=== PATIENT | female | born 1940 | race Caucasian/White ===

== ENCOUNTER 2023-01-04 07:08 | Inpatient (IN) | payer OTHER ==
--- OUTSIDE RECORDS SUMMARY | 2023-01-04 07:12 | XMS REPORT | Continuity of Care Document ---
:1940 Author Organization [facility] t Address [address] [place] [address]. [address] [place] [address] Care Team Providers Name Role Phone Geri Staley Primary Care Physician Jesús Rosales MD Attending Clinician Aleyda Chung DO Attending Clinician Issa ROTHMAN, Himanshu Attending Clinician Catalina Malik RN Attending Clinician Unavailable Bobby ROTHMAN, Jesús Britt Attending Clinician Tiffany Bella MA Attending Clinician Unavailable Lucas Thayer RN Attending Clinician Unavailable Mervat Adams RN Attending Clinician Unavailable [facility] [place] Attending Clinician Unavailable Yinka Mendieta MD Attending Clinician Aline Negrete MA Attending Clinician Unavailable Norma Williamson RN Attending Clinician Unavailable Luisa Nova RN Attending Clinician Unavailable Moriah Vela RN Attending Clinician Unavailable Sophia Oconnell NP Attending Clinician Catherine ROTHMAN, Not In System Attending Clinician Unavailable Kendra Sinclair NP Attending Clinician Lupe Scruggs MA Attending Clinician Unavailable Marilu ROTHMAN, Junie Travis Attending Clinician [phone] Therapy, [facility] Infusion Attending Clinician Unavailable Emelina Gardner MD Attending Clinician EMELINA GARDNER Attending Clinician Unavailable Doctor Unassigned, [place] Attending Clinician Unavailable Payers Payer Name Policy Type Policy Number Effective Date Expiration Date S ourálvaro Problems Condition Condition Condition Status Onset Resolution Last Treating Co mments Source Name Details Category Date Date Treatment Clinician Date Malignant Malignant Disease Active Met [facility]odi neoplasm neoplasm 12-13 of of 00:00: Hospita upper-oute upper-oute 00 l r quadrant r quadrant of left of left breast in breast in female, female, estrogen estrogen receptor receptor negative negative Breast Breast Disease Active [facility] mass in mass in 11-21 st female female 00:00: Hospita 00 l Allergies, Adverse Reactions, Alerts This patient has no known allergies or adverse reactions. Social History Social Habit Start Date Stop Date Quantity Comments Source History of tobacco Current smoker [facility] Alcohol intake 2022-12-27 2022-12-27 [facility] 00:00:00 00:00:00 non-drinker Hospital (finding) Cigarettes smoked 2022-12-21 2022-12-[address] current (pack per 00:00:00 00:00:00 Hospita l day) - Reported Cigarette 2022-12-21 2022-12-21 [facility] pack-years 00:[facility]:00 00:00:00 Hospital Tobacco use and 2022-12-21 2022-12-21 Smokeless tobacco [facility] exposure 00:00:00 00:00:00 non-user Hospital History SDOH Food 2022-12-21 2022-12-[address] Worry 00:00:00 00:00:00 Hospital History SDOH Food 2022-12-21 2022-12-[address] Scarcity 00:00:00 00:00:00 Hospital History SDOH 2022-12-21 2022-12-21 2 [facility] Med 00:00:00 00:00:00 Hospital History SDOH 2022-12-21 2022-12-21 2 [facility] Non-Med 00:00:00 00:00:00 Hospita l Sex Assigned At [birth year] [facility] 00:00:00 [facility]:00 Hospital Smoking Status Start Date Stop Date Source Unknown if ever smoked [facility] Ex-smoker 2022-12-21 00:00:2022-12-21 00:00:00 [facility] Medications Ordered Filled Start Stop Current Ordering Indication Dosage Frequency Signature Comments Components Source Medication Medication Date Date Medication? Clinician (SIG) Name Name HYDROcodone 2022- Yes [id number] 1{tbl} Q8H Take 1 Methodi -acetaminop 4-16 -[address] [employer] ([employer] 00:00: 04:59 mouth Hosp valerie 7.5-325 mg 00 :00 every 8 l per tablet (eight) hours as needed for moderate pain for up to 10 days .acute pain. Max Daily Amount: 3 tablets HYDROcodone 2022- Yes [id number] 1{tbl} Q6H Take 1 Methodi -acetaminop 4-16 -[address] [employer] ([employer] 00:00: 04:59 mouth Hosp valerie 5-325 mg 00 :00 every 6 l per tablet (six) hours as needed for moderate pain for up to 7 days .acute pain. Max Daily Amount: 4 tablets HYDROcodone 2022-2022- [place] [id number] 1{tbl} Q8H Take 1 Methodi -acetaminop 4-16 -[address] [employer] ([employer] 00:00: 00:00 mouth Hosp valerie 5-325 mg 00 :00 every 8 l per tablet (eight) hours as needed for moderate pain for up to 10 days .acute pain. Max Daily Amount: 3 tablets glycopyrrol 0 Yes Inhale. Met hodi ate-formote 4-05 st roL 17:05: Hospita (Bevespi 49 l Aerosphere) 9-4.8 mcg HFA aerosol inhaler gabapentin 2022-0 Yes 800mg [id number] Take 1 [facility] (NEURONTIN) 4-[id number] 800 mg 17:05: 3D (800 mg Hospita tablet 49 total) by l mouth 3 (three) times a day. aspirin 2022-0 Yes 81mg QD Take 1 [facility] (ECOTRIN) 4-05 tablet (81 st 81 MG 17:05: mg total) Hospita enteric 49 by mouth l coated daily. tablet OLANZapine Yes [id number] Take one [facility] (ZyPREXA) 5 3-30 (1) tablet st MG tablet 00:00: by mouth Hosp valerie 00 nightly as l needed for nausea and vomiting. prochlorper 0 202- Yes [id number] 5mg Q6H Take 1 [facility] azine 3-30 04-30 tablet (5 st (COMPAZINE) 00:00: 04:59 mg total) Hospita 5 MG tablet 00 :00 by mouth l every 6 (six) hours as needed for nausea or vomiting for up to 30 days. metoprolol 0 Yes 25mg QD Take 1 Metho di succinate 8-14 tablet (25 st XL 00:00: mg total) Hospita (TOPROL-XL) 00 by mouth l 25 mg 24 hr daily. tablet sertraline 0 Yes 25mg QD Take 1 Metho di (ZOLOFT) 25 8-14 tablet (25 st MG tablet 00:00: mg total) Hos veronica 00 by mouth l daily. atorvastati 0 Yes 20mg QD Take 1 Meth seyd n (LIPITOR) 7-27 tablet (20 st 20 mg 00:00: mg total) Hospita tablet 00 by mouth l daily. traZODone 0 Yes 100mg QD Take 1 Metho di (DESYREL) 6-[address] 100 MG 00:00: (100 mg Hospita tablet 00 total) by l mouth nightly. Arnuity Yes INAHLE 1 Method i Ellipta 200 6-03 PUFF(S) BY st mcg/actuati 00:00: MOUTH Hospi ta on blister 00 EVERY 24 l with device HOURS ALPRAZolam Yes .5mg Take 1 Metho di (XANAX) 0.5 5-[address] MG tablet 00:00: (0.5 mg Hospi ta 00 total) by l mouth. sotrovimab 2021- No [id number] 500mg 500 mg, IV [facility] (XEVUDY) 2-10 02-10 Infusion, ity o f 500 mg in 23:30: 22:51 ONCE, [place] NaCl 0.9% 00 :00 Administer Medi christine (NS) 50 mL over 30 Branch MINI-BAG Minutes, On Candy 10/28/21 at 1730, For [address] able 24 hours refrigerat ed or 6 hours at room temperatur e including transporta tion and infusion time.
Immunizations Ordered Immunization Filled Immunization Date Status Commen ts Source Name Name Zoster Vaccine 2022-01-27 Completed [facility] Recombinant 00:00:00 [facility] PFIZER COVID-19 MRNA 2021-05-27 Completed [facility] VACCINATION 00:00:00 [facility] PFIZER COVID-19 MRNA 2021-05-04 Completed [facility] VACCINATION 00:00:00 Hospital Vital Signs Vital Name Observation Time Observation Value Comments Source Systolic blood 2021-10-28 23:52:00 162 mm[Hg] Univer sity [facility] Diastolic blood 2021-10-28 23:52:00 63 mm[Hg] Unive rsity [facility] Heart rate 2021-10-28 23:52:00 63 /min [facility] Body temperature 2021-10-28 23:52:00 36.44 María [facility] Res[facility] rate 2021-10-28 23:52:00 21 /min [facility] Oxygen saturation in 2021-10-28 23:52:00 92 /min [facility] Arterial blood by [facility] Pulse oximetry [place] Body height 2021-10-28 22:05:[address] [facility] Body weight 2021-10-28 22:05:[address] [facility] BMI 2021-10-28 22:05:00 27.46 kg/m2 [facility] Systolic blood 2022-12-28 15:15:00 179 mm[Hg] Method ist [facility] pressure Diastolic blood 2022-12-28 15:15:00 73 [facility]Hg[facility] pressure Heart rate 2022-12-28 15:15:00 51 /min [facility] Body temperature 2022-12-28 15:15:00 36 María [facility] Respiratory rate 2022-12-28 15:15:00 18 /min [facility] Body height 2022-12-28 15:15:00 162.6 cm measured [facility] Body weight 2022-12-28 15:15:00 74.027 kg [facility] BMI 2022-12-28 15:15:00 28.01 kg/m2 [facility] Oxygen saturation in 2022-12-28 15:15:00 95 /min [facility] Arterial blood by Pulse oximetry Procedures Procedure Date / Time Performing Clinician Source Performed COMPREHENSIVE METABOLIC 2022-12-28 15:25:00 Juliet, [facility] PANEL CBC WITH PLATELET AND 2022-12-28 15:25:00 Juliet, [facility] DIFFERENTIAL MAGNESIUM LEVEL 2022-12-28 15:25:00 Juliet, [facility] spital ESTIMATED GFR 2022-12-28 15:25:00 Juliet, [facility] spital MANUAL DIFFERENTIAL 2022-12-28 15:25:00 Juliet, [facility] IR PORT PLACEMENT 2022-12-27 17:08:00 Juliet, [facility] CBC WITH PLATELET AND 2022-12-13 20:43:00 Juliet, [facility] DIFFERENTIAL COMPREHENSIVE METABOLIC 2022-12-13 20:43:00 Juliet, [facility] PANEL PARTIAL THROMBOPLASTIN 2022-12-13 20:43:00 Juliet, [facility] TIME (PTT) PROTHROMBIN TIME WITH INR 2022-12-13 20:43:00 Juliet, [facility] ESTIMATED GFR 2022-12-13 20:43:00 Juliet, [facility] sp[facility] SURGICAL PATHOLOGY 2022-11-23 17:27:00 [facility] REQUEST US BREAST BIOPSY RIGHT 2022-11-23 16:57:24 [facility] MAMMO DIAGNOSTIC POST 2022-11-23 16:57:05 [facility] CLIP BILATERAL SURGICAL PATHOLOGY 2022-11-23 16:27:00 [facility] REQUEST US BREAST BIOPSY LEFT 2022-11-23 16:15:49 [facility] US BREAST COMPLETE 2022-11-08 17:48:58 [facility] BILATERAL MAMMO BREAST DIAGNOSTIC 2022-11-08 17:23:07 Yinka Mendieta [facility] TOMOSYNTHESIS BILATERAL CT CHEST EXTERNAL STUDY 2022-10-25 21:02:16 Jesús Rosales [facility] CT CHEST WO CONTRAST 2022-10-25 00:00:00 Provider, Not In [facility] CT CHEST EXTERNAL STUDY 2022-10-25 00:00:00 Provider, Not In [facility] CT CHEST EXTERNAL STUDY 2022-08-05 18:37:[address] [facility] CT CHEST EXTERNAL STUDY 2022-08-05 00:00:00 Provider, Not In [facility] CT CHEST EXTERNAL STUDY 2022-04-15 18:45:06 [address] [facility] CT CHEST EXTERNAL STUDY 2022-04-15 18:45:[address] [facility] CT CHEST WO CONTRAST 2022-04-15 00:00:00 Provider, Not In [facility] MRI THORACIC SPINE WO 2022-03-31 00:00:00 Provider, Not In [facility] CONTRAST System XR LUMBAR SPINE AP 2022-03-22 17:55:55 [facility] LATERAL FLEXION AND [facility] EXTENSION XR CERVICAL SPINE NEUTRAL 2022-03-22 17:55:00 [facility] [place] FLEXION AND EXTENSION Thaddeus MRI SPINE EXTERNAL STUDY 2022-02-09 00:00:00 Provider, Not In [facility] CONSENT/REFUSAL FOR 2021-10-28 06:01:00 Doctor Unassigned, [facility] DIAGNOSIS AND TREATMENT [place] [facility] Plan of Care Planned Activity Planned Date Details Comments Source Future Scheduled 2023-01-04 65+ PNEUMOCOCCAL [facility] Test 07:11:28 VACCINE (1 - PCV) [code = 65+ PNEUMOCOCCAL VACCINE (1 - PCV)] Future Scheduled 2023-01-04 COVID-19 VACCINE (3 - [facility] Test 07:11:28 Booster for Pfizer series) [code = COVID-19 VACCINE (3 - Booster for Pfizer series)] Future Scheduled 2023-01-04 INFLUENZA VACCINE [facility] Test 07:11:28 [code = INFLUENZA VACCINE] Encounters Start End Encounter Admission Attending Care Care Encounter Source Date/Time Date/Time Type Type Clinicians Facility Department ID 2023-01-02 2023-01-02 Hospital Bobby, 1.2.840.1 [id number] Methodi 14:55:18 23:59:00 Encounter Jesús Melvin 87679.1.[address] 3.430.2.7 Hospit a .3.511812 l .8 2023-01-02 2023-01-02 Outpatient [facility] [id number] [place] 00:00:00 00:00:[address] 2023-01-02 2023-01-02 Orders Bobby 1.2.840.1 [id number] [facility] 00:00:00 00:00:00 Only Jesús Melvin 03862.1.[address] 3.430.2.7 Hospit a .3.970133 l .8 2023-01-01 2023-01-01 Orders Aleyda Chung 1.2.840.1 [id number] 2099 [id number] Methodi 00:00:00 00:00:[address] 3.430.2.7 Hospit a .3.969987 l .8 2023-01-01 2023-01-01 Orders Aleyda Chung 1.2.840.1 [id number] 2099 [id number] Methodi 00:00:00 00:00:[address] 3.430.2.7 Hospit a .3.494667 l .8 2023-01-01 2023-01-01 Orders Himanshu Parsons 1.2.840.1 [id number] 760 [id number] Methodi 00:00:00 00:00:[address] 3.430.2.7 Hospit a .3.260379 l .8 2022-12-28 2022-12-28 Infusion Aleyda Chung 1.2.840.1 [id number] 634 [id number] Methodi 10:00:00 16:00:[address] 3.430.2.7 Hospit a .3.534986 l .8 2022-12-28 2022-12-28 Outpatient ALEYDA CHUNG [facility] [id number] [place] 00:00:00 00:00:[address] 2022-12-28 2022-12-28 Oncology Bartos, 1.2.840.1 [id number] Methodi 00:00:00 00:00:00 [facility] Catalina 20585.1.1 030 s t ip 3.430.2.7 Hospit a .3.779485 l .8 2022-12-27 2022-12-27 [facility] Yobany Chungh 1.2.840.1 [id number] Methodi 09:31:20 23:59:[address] 3.430.2.7 Hospit a .3.237245 l .8 2022-12-27 2022-12-27 [facility] [id number] [place] 00:00:00 00:00:[address] 2022-12-27 2022-12-27 Travel 1.2.840.1 1.2.220.218 9930 [id number] Methodi 00:00:00 00:00:[address] 3.430.2.7 0.2.7.3.698 Ho spita .3.726097 084.8 l .8 2022-12-22 2022-12-22 Telemedici Bobby 1.2.840.1 [id number] Methodi 13:45:00 14:00:00 ne Jesús Britt 74297.1.[address] 3.430.2.7 Hospit a .3.202934 l .8 2022-12-22 2022-12-22 Outpatient [facility] [id number] [place] 00:00:00 00:00:[address] 2022-12-22 2022-12-22 Telephone Shayne, 1.2.840.1 [id number] 033 [id number] Methodi 00:00:00 00:00:[address] 3.430.2.7 Hospit a .3.167859 l .8 2022-12-21 2022-12-21 Abstract Shayne, 1.2.840.1 [id number] 2100 006241 Methodi 00:00:00 00:00:[address] 3.430.2.7 Hospit a .3.714951 l .8 2022-12-21 2022-12-21 Oncology King, 1.2.840.1 [id number] 21001 [id number] Methodi 00:00:00 00:00:00 Survivorsh Catalina 98418.1.1 145 s t ip 3.430.2.7 Hospit a .3.129925 l .8 2022-12-20 2022-12-20 Orders Juliet Aleyda 1.2.840.1 [id number] 2099 [id number] Methodi 00:00:00 00:00:[address] 3.430.2.7 Hospit a .3.770082 l .8 2022-12-15 2022-12-15 Orders JulietYobanyh 1.2.840.1 [id number] 2099 084508 Methodi 00:00:00 00:00:[address] 3.430.2.7 Hospit a .3.865955 l .8 2022-12-15 2022-12-15 Orders Jeovany, 1.2.840.1 [id number] 7671 Methodi 00:00:00 00:00:00 Only Forresta L 26576.1.1 565 s t 3.430.2.7 Hospit a .3.424642 l .8 2022-12-14 2022-12-14 Telephone Bryan, 1.2.840.1 [id number] Methodi 00:00:00 00:00:[address] 3.430.2.7 Hospit a .3.947034 l .8 2022-12-14 2022-12-14 Orders Henna, 1.2.840.1 [id number] 2610 Methodi 00:00:00 00:00:00 Only Jacquiur 77786.1.1 179 s t 3.430.2.7 Hospit a .3.412592 l .8 2022-12-13 2022-12-13 Office Aleyda Chung 1.2.840.1 [id number] 2100 [id number] Methodi 14:00:00 16:30:[address] 3.430.2.7 Hospit a .3.477528 l .8 2022-12-13 2022-12-13 Lab Aleyda Chung 1.2.840.1 [id number] 2099 [id number] Methodi 15:30:00 15:35:[address] 3.430.2.7 Hospit a .3.266967 l .8 2022-12-13 2022-12-13 Office Anam 1.2.840.3 [id number] Methodi 12:45:00 14:48:53 Visit Yinka A 77246.1.1 731 s t 3.430.2.7 Hospit a .3.815797 l .8 2022-12-13 2022-12-13 Outpatient ANAM [facility] [id number] [place] 00:00:00 00:00:00 YINKA [address] 2022-12-13 2022-12-13 [facility] [id number] [place] 00:00:00 00:00:[address] 2022-12-13 2022-12-13 [facility] [id number] [place] 00:00:00 00:00:[address] 2022-12-13 2022-12-13 Orders Jeovany, 1.2.840.1 [id number] Methodi 00:00:00 00:00:00 Only Forresta L 79574.1.1 581 s t 3.430.2.7 Hospit a .3.905719 l .8 2022-12-13 2022-12-13 Travel 1.2.840.1 1.2.323.243 4837 [id number] Methodi 00:00:00 00:00:[address] 3.430.2.7 0.2.7.3.698 Ho spita .3.669510 084.8 l .8 2022-12-05 2022-12-05 Travel 1.2.840.1 1.2.152.541 2248 [id number] Methodi 00:00:00 00:00:[address] 3.430.2.7 0.2.7.3.698 Ho spita .3.404231 084.8 l .8 2022-12-02 2022-12-02 Telephone Anam, 1.2.840.7 [id number] 2 [id number] Methodi 00:00:00 00:00:00 Yinka A 35232.1.1 949 s t 3.430.2.7 Hospit a .3.275279 l .8 2022-11-29 2022-11-29 Telephone Glazer, 1.2.840.4 [id number] 422 [id number] Methodi 00:00:00 00:00:00 Aline White [address]119.1.[address] 3.430.2.7 Hospit a .3.611650 l .8 2022-11-25 2022-11-25 Telephone Rosales, 1.2.840.6 [id number] 192 [id number] Methodi 00:00:00 00:00:00 Sreekanthli [address]Stepan [address] 3.430.2.7 Hospit a .3.381603 l .8 2022-11-25 2022-11-25 Oncology Clay, 1.2.840.1 [id number] 862 [id number] Methodi 00:00:00 00:00:00 [facility] Norma 24860.1.1 113 s t ip 3.430.2.7 Hospit a .3.584424 l .8 2022-11-24 2022-11-24 Telephone Avtar, 1.2.840.1 [id number] 683 [id number] Methodi 00:00:00 00:00:[address] 3.430.2.7 Hospit a .3.151170 l .8 2022-11-23 2022-11-23 [facility], 1.2.840.1 [id number] Methodi 09:19:13 23:59:00 Encounter Yinka Pugh 48159.1.[address] 3.430.2.7 Hospit a .3.553112 l .8 2022-11-23 2022-11-23 [facility], 1.2.840.1 [id number] 774 [id number] Methodi 09:18:27 09:18:27 Encounter Yinka Pugh 70839.1.[address] 3.430.2.7 Hospit a .3.364001 l .8 2022-11-23 2022-11-23 [facility], 1.2.840.1 [id number] Methodi 09:17:14 09:17:14 Encounter Yinka Pugh 09531.1.[address] 3.430.2.7 Hospit a .3.655140 .8 2022-11-23 2022-11-[address] [facility] [id number] [place] 00:00:00 00:00:00 YINKA [address] 2022-11-23 2022-11-23 Outpatient [facility] [id number] [place] 00:00:00 00:00:00 YINKA [address] 2022-11-23 2022-11-23 [facility] [id number] [place] 00:00:00 00:00:00 YINKA [address] 2022-11-22 2022-11-22 Telephone Avtar, 1.2.840.1 [id number] Methodi 00:00:00 00:00:[address] 3.430.2.7 Hospit a .3.101603 l .8 2022-11-22 2022-11-22 Travel 1.2.840.1 1.2.457.147 8619 [id number] Methodi 00:00:00 00:00:[address] 3.430.2.7 0.2.7.3.698 Ho spita .3.770087 084.8 l .8 2022-11-14 2022-11-14 Telephone Glabecky, 1.2.840.2 [id number] 039 [id number] Methodi 00:00:00 00:00:00 Aline White 89875.1.[address] 3.430.2.7 Hospit a .3.869008 l .8 2022-11-14 2022-11-14 Travel 1.2.840.1 1.2.825.057 5982 [id number] Methodi 00:00:00 00:00:[address] 3.430.2.7 0.2.7.3.698 Ho spita .3.409072 084.8 l .8 2022-11-10 2022-11-10 Telephone Vela, 1.2.840.1 [id number] 2099 [id number] Methodi 00:00:00 00:00:00 [address] 3.430.2.7 Hospit a .3.485962 l .8 2022-11-09 2022-11-09 Transcribe Anam, 1.2.840.1 [id number] 2 [id number] Methodi 00:00:00 00:00:00 Orders Yinka A 02403.1.1 576 s t 3.430.2.7 Hospit a .3.959848 l .8 2022-11-09 2022-11-09 Orders Sophia Oconnell 1.2.840.2 [id number] 2 [id number] Methodi 00:00:00 00:00:[address] 3.430.2.7 Hospit a .3.424304 l .8 2022-11-08 2022-11-08 [facility], 1.2.840.1 [id number] Methodi 10:12:34 23:59:00 Encounter Yinka Pugh 20251.1.[address] 3.430.2.7 Hospit a .3.138036 l .8 2022-11-08 2022-11-08 Office Jesús Rosales 1.2.840.6 [id number] Methodi 09:30:00 11:29:12 Visit Yinka Mendieta 88728.1.[address] 3.430.2.7 Hospit a .3.712730 l .8 2022-11-08 2022-11-08 [facility], 1.2.840.1 [id number] Methodi 10:09:38 10:11:00 Encounter Yinka Pugh 67083.1.[address] 3.430.2.7 Hospit a .3.212817 l .8 2022-11-08 2022-11-08 Travel 1.2.840.1 1.2.577.317 2993 [id number] Methodi 00:00:00 00:00:[address] 3.430.2.7 0.2.7.3.698 Ho spita .3.856974 084.8 l .8 2022-11-08 2022-11-08 Outpatient [facility] [id number] [place] 00:00:00 00:00:00 JESÚS Wahl Method i st 2022-11-08 2022-11-08 Outpatient [facility] [id number] [place] 00:00:00 00:00:00 YINKA [address] 2022-11-08 2022-11-08 Outpatient [facility] [id number] [place] 00:00:00 00:00:[address] YINKA [address] 2022-10-28 2022-10-28 Telephone Shayne 1.2.840.1 [id number] Methodi 00:00:00 00:00:[address] 3.430.2.7 Hospit a .3.946957 l .8 2022-10-28 2022-10-28 Telephone Rosales, 1.2.840.5 [id number] 703 [id number] Methodi 00:00:00 00:00:00 Edli Y.H. 18732.1.[address] 3.430.2.7 Hospit a .3.554139 l .8 2022-10-27 2022-10-27 Orders Provider, 1.2.840.1 [id number] 2099 [id number] Methodi 00:00:00 00:00:00 Only Not In 57469.1.[address] System 3.430.2.7 Hospit a .3.472028 l .8 2022-10-25 2022-10-25 Orders Provider, 1.2.840.1 [id number] 2099 [id number] Methodi 00:00:00 00:00:00 Only Not In 87249.1.[address] System 3.430.2.7 Hospit a .3.057019 l .8 2022-10-07 2022-10-07 Telephone Shayne, 1.2.840.1 [id number] 417 [id number] Methodi 00:00:00 00:00:[address] 3.430.2.7 Hospit a .3.635122 l .8 2022-10-07 2022-10-07 Telephone Shayne, 1.2.840.1 [id number] 399 [id number] Methodi 00:00:00 00:00:[address] 3.430.2.7 Hospit a .3.138364 l .8 2022-10-07 2022-10-07 Telephone Rosales, 1.2.840.1 [id number] 490 [id number] Methodi 00:00:00 00:00:00 [facility]. [address]72.1.[address] 3.430.2.7 Hospit a .3.474798 l .8 2022-09-07 2022-09-07 Telephone Bella, 1.2.840.1 [id number] 611 [id number] Methodi 00:00:00 00:00:[address] 3.430.2.7 Hospit a .3.932072 l .8 2022-09-07 2022-09-07 Telephone Bella, 1.2.840.1 [id number] 623 [id number] Methodi 00:00:00 00:00:[address] 3.430.2.7 Hospit a .3.451224 l .8 2022-09-02 2022-09-02 Telephone Bella, 1.2.840.1 [id number] 491 [id number] Methodi 00:00:00 00:00:[address] 3.430.2.7 Hospit a .3.930276 l .8 2022-09-01 2022-09-[address] [facility], 1.2.840.1 [id number] 10868 Methodi 09:38:01 23:59:00 Encounter Jesús Britt 96370.1.[address] 3.430.2.7 Hospit a .3.719937 l .8 2022-09-01 2022-09-01 [facility], 1.2.840.1 [id number] 0003 Methodi 09:30:00 10:31:24 Visit Jesús Britt 94945.1.[address] 3.430.2.7 Hospit a .3.260866 l .8 2022-09-01 2022-09-[address] [facility], 1.2.840.1 [id number] 61330 13064 Methodi 09:29:36 09:37:00 Encounter Jesús Britt 19869.1.[address] 3.430.2.7 Hospit a .3.670617 l .8 2022-09-01 2022-09-01 [facility], 1.2.840.1 [id number] 2100 [id number] Methodi 00:00:00 00:00:[address] [place] 3.430.2.7 Hospit a .3.795109 l .8 2022-09-01 2022-09-01 Orders Provider, 1.2.840.1 [id number] 2099 701047 Methodi 00:00:00 00:00:00 Only Not In 57541.1.[address] System 3.430.2.7 Hospit a .3.657897 l .8 2022-09-01 2022-09-01 Outpatient [facility] [id number] [place] 00:00:00 00:00:00 EDWARD [address] 2022-09-01 2022-09-01 Outpatient [facility] [id number] [address] [place] 00:00:00 00:00:00 EDWARD [address] 2022-09-01 2022-09-01 Outpatient [facility] [id number] [place] 00:00:00 00:00:00 EDWARD [address] 2022-08-31 2022-08-31 Telephone Shayne, 1.2.840.1 [id number] 514 [id number] Methodi 00:00:00 00:00:00 Tiffany [address].1.[address] 3.430.2.7 Hospit a .3.436125 l .8 2022-08-30 2022-08-30 Abstract Shayne, 1.2.840.1 [id number] Methodi 00:00:00 00:00:[address] 3.430.2.7 Hospit a .3.649074 l .8 2022-05-12 2022-07-19 Office Rosales, 1.2.840.1 [id number] Methodi 14:30:00 00:05:51 Visit Jesús Britt 72311.1.[address] 3.430.2.7 Hospit a .3.611845 l .8 2022-07-19 2022-07-19 Orders Sheba, 1.2.840.1 [id number] Methodi 00:00:00 00:00:00 Only Lupe 76843.1.[address] 3.430.2.7 Hospit a .3.389147 l .8 2022-05-12 2022-05-12 Hospital [facility], 1.2.840.1 [id number] Methodi 14:35:21 23:59:00 Encounter Jesús ConstantinoStepan 53226.1.[address] 3.430.2.7 Hospit a .3.044497 l .8 2022-05-12 2022-05-12 Orders Provider, 1.2.840.1 [id number] 2100 [id number] Methodi 00:00:00 00:00:00 Only Not In 99498.1.[address] System 3.430.2.7 Hospit a .3.046486 l .8 2022-05-12 2022-05-12 Travel 1.2.840.1 1.2.719.075 3253 [id number] Methodi 00:00:00 00:00:[address] 3.430.2.7 0.2.7.3.698 spita .3.803895 084.8 l .8 2022-05-12 2022-05-12 Outpatient [facility] [id number] [place] 00:00:00 00:00:00 EDWARD [address] 2022-05-12 2022-05-12 Outpatient [facility] [id number] [place] 00:00:00 00:00:00 EDWARD [address] 2022-05-10 2022-05-10 Abstract Sheba, 1.2.840.1 [id number] 2100 [id number] Methodi 00:00:00 00:00:[address] 3.430.2.7 Hospit a .3.152841 l .8 2022-05-10 2022-05-10 Orders Provider, 1.2.840.1 [id number] Methodi 00:00:00 00:00:00 Only Not In 66858.1.[address] System 3.430.2.7 Hospit a .3.900956 l .8 2022-05-05 2022-05-05 [facility], 1.2.840.6 [id number] 032 [id number] Methodi 00:00:00 00:00:00 Jesús Britt 40946.1.[address] 3.430.2.7 Hospit a .3.105391 l .8 2022-03-22 2022-03-22 [facility], 1.2.840.1 [id number] Methodi 12:32:47 23:59:00 Encounter Junie 01200.1.1 072 s t Thaddeus 3.430.2.7 Hospi ta .3.000670 l .8 2022-03-22 2022-03-22 [facility], 1.2.840.1 [id number] Methodi 12:32:24 23:59:00 Encounter Junie 49216.1.1 037 s t Thaddeus 3.430.2.7 Hospi ta .3.496089 l .8 2022-03-22 2022-03-22 Travel 1.2.840.1 1.2.912.118 7460 [id number] Methodi 00:00:00 00:00:[address] 3.430.2.7 0.2.7.3.698 Ho spita .3.775627 084.8 l .8 2022-03-22 2022-03-22 [facility], 1.2.840.1 [id number] [id number] Methodi 00:00:00 00:00:00 Orders Junie 63505.1.[address] Thaddeus 3.430.2.7 Hospi ta .3.138118 l .8 2022-03-22 2022-03-22 Outpatient [facility] [id number] [address] [place] [address] 00:00:00 00:00:[address] 2022-03-22 2022-03-22 Outpatient [facility] [id number] [address] [place] [address] 00:00:00 00:00:[address] 2021-10-28 2021-10-28 Nurse Therapy, Adc Covid Infusion [facility] 1.2.840.114 [id number] Univers 16:00:00 17:00:00 Visit Emelina Gardner 350.1.13.10 ity [place] [id number] [place] [id number] Branch 2021-10-28 2021-10-28 Outpatient R RUFUS [facility] [id number] Univers 16:00:00 16:00:00 EMELINA erazo [facility] 2021-10-28 2021-10-28 Orders Doctor ENEDELIA 1.2.840.114 [id number] Univers 00:00:00 00:00:00 Only Unassigned, MARIAH 350.1.13.10 ity of [place] [facility] 4.2.7.2.686 Ryan as [id number] [place] [address] Branch Results Test Description Test Time Test Comments Results Result Comments Source Surgical pathology request 2022-11-25 17:27:16 Test Item Value Reference Range Interpretation Comme nts Case number (test code = [id number]) [id number] Surgical pathology report (test code = See link below for PDF Lab R eport 1833) Result status (test code = [id number]) This is Final Report for [id number] 0133-1 [facility]
[2023-01-04] MEDS ORDERED: FENTANYL CITR 100 MCG/2 ML ONE (07:56)
[2023-01-04] MEDS ORDERED: FAMOTIDINE 20 MG/2 ML VIAL IV ONE ×2 (07:56→20:26)
[2023-01-04] MEDS ORDERED: ONDANSETRON 4 MG/2 ML VIAL ONE (07:56)
[2023-01-04] MEDS ORDERED: NA CHLORIDE 0.9% 1,000 ML ONE ×2 (07:56→17:04)
[2023-01-04] MEDS ORDERED: NA CHLORIDE 0.9% 500 ML ONE (07:56)
[2023-01-04 08:28] LABS: Absolute Lymphocytes (CBC) 0.5 K/uL (0.7-4.9); Hematocrit 40.4 % (36.0-45.0); Lymphocytes % 14.1 % (15.3-44.8); MCV 89.2 fL (80-100); MPV 9.3 fL (7.6-11.3); RBC Red Blood Cell Count 4.53 M/uL (3.86-4.86)
[2023-01-04 08:37] LABS: Protime INR 1.13
--- NOTE | 2023-01-04 08:41 | RAD REPORT ---
EXAM DESCRIPTION: RAD - Chest Single View - 01/04/2023 8:28 am CLINICAL HISTORY: COUGH Chest pain. COMPARISON: No comparisons FINDINGS: Portable technique limits examination quality. Diffuse emphysema is seen. Scarring and postsurgical changes are present right upper lobe medially. T he lungs are otherwise clear. The heart is normal in size. No displaced fractures.Right port catheter its tip in the SVC. IMPRESSION: COPD without acute infiltrate.
[2023-01-04 08:55] LABS: Albumin 3.1 g/dL (3.4-5.0); Bilirubin Total 1.5 mg/dL (0.2-1.0); Potassium 3.6 mEq/L (3.5-5.1); Protein, Total 6.7 g/dL (6.4-8.2); Troponin High Sensitivity 54.1 pg/mL (<58.9)
[2023-01-04 08:59] LABS: Thyroid Stimulating Hormone 4.12 uIU/mL (0.358-3.740)
--- NOTE | 2023-01-04 09:51 | EDPHYS ---
Physician Documentation [facility] Name: Karrie Sky Age: 82 yrs Sex: Female : 1940 Arrival Date: 01/04/2023 Time: 07:08 Bed 17 Private MD: ED Physician Mikhail Astudillo HPI: 01/04 09:05 This 82 yrs old Female presents to ER via EMS with complaints of jannette Nausea/Vomiting/Diarrhea. 09:05 The patient presents to the emergency department with nausea, vomiting, that is jannette intermittent, diarrhea, that is continuous. Onset: The symptoms/episode began/occurred 2 day(s) ago. Possible causes: unknown. The symptoms are aggravated by nothing. The symptoms are alleviated by nothing. Associated signs and symptoms: Pertinent positives: diarrhea, nausea, vomiting. Severity of symptoms: At their worst the symptoms were mild in the emergency department the symptoms are unchanged. The patient has experienced similar episodes in the past, a few times. Historical: - Allergies: 07:09 No Known Allergies; as6 - PMHx: 07:09 breast cancer; as6 - PSHx: 07:09 Total abdominal hysterectomy; colon resection; as6 - Immunization history:: Client reports receiving the 2nd dose of the Covid vaccine, Pneumococcal vaccine is up to date. - Social history:: Smoking status: Patient denies any tobacco usage or history of. ROS: 09:07 Constitutional: Negative for fever, chills, and weight loss, Eyes: Negative for injury, jannette pain, redness, and discharge, ENT: Negative for injury, pain, and discharge, Neck: Negative for injury, pain, and swelling, Respiratory: Negative for shortness of breath, cough, wheezing, and pleuritic chest pain, Back: Negative for injury and pain, : Negative for injury, bleeding, discharge, and swelling, MS/Extremity: Negative for injury and deformity, Skin: Negative for injury, rash, and discoloration, Neuro: Negative for headache, weakness, numbness, tingling, and seizure, Psych: Negative for depression, anxiety, suicide ideation, homicidal ideation, and hallucinations, Allergy/Immunology: Negative for hives, rash, and allergies, Endocrine: Negative for neck swelling, polydipsia, polyuria, polyphagia, and marked weight changes. 09:07 Cardiovascular: Positive for palpitations. 09:07 Abdomen/GI: Positive for nausea and vomiting, diarrhea. Exam: 09:07 Head/Face: Normocephalic, atraumatic. Eyes: Pupils equal round and reactive to light, jannette extra-ocular motions intact. Lids and lashes normal. Conjunctiva and sclera are non-icteric and not injected. Cornea within normal limits. Periorbital areas with no swelling, redness, or edema. ENT: Nares patent. No nasal discharge, no septal abnormalities noted. Tympanic membranes are normal and external auditory canals are clear. Oropharynx with no redness, swelling, or masses, exudates, or evidence of obstruction, uvula midline. Mucous membranes moist. Neck: Trachea midline, no thyromegaly or masses palpated, and no cervical lymphadenopathy. Supple, full range of motion without nuchal rigidity, or vertebral point tenderness. No Meningismus. Chest/axilla: Normal chest wall appearance and motion. Nontender with no deformity. No lesions are appreciated. 09:07 Constitutional: The patient appears frail, uncomfortable. 09:07 Cardiovascular: Rate: tachycardic, actual rate is 103 bpm, Rhythm: regular, Heart sounds: normal, Edema: is not appreciated, JVD: is not appreciated. 09:07 ECG was reviewed by the Attending Physician. Vital Signs: 07:00 BP 160 / 68; Pulse 105; Resp 18; Pulse Ox 92% on 2 lpm NC; db 07:11 BP 142 / 69; Pulse 103; Resp 18 S; Temp 98.4(O); Pulse Ox 96% on 2 lpm NC; Weight 73.94 as6 kg (R); Height 5 ft. 4 in. (R); Pain 8/10; 08:00 BP 148 / 66; Pulse 108; Resp 16; Pulse Ox 94% on 2 lpm NC; db 09:00 BP 137 / 58; Pulse 106; Resp 16; Pulse Ox 93% on 2 lpm NC; db 10:47 BP 170 / 73; Pulse 100; Resp 22; Pulse Ox 94% on 2 lpm NC; db 11:30 BP 139 / 67; Pulse 100; Resp 18; Pulse Ox 100% on 2 lpm NC; db 13:00 BP 116 / 59; Pulse 96; Resp 14; Pulse Ox 100% on 2 lpm NC; db 19:25 BP 145 / 68; Pulse 108; Resp 17; Pulse Ox 99% ; ha1 07:11 Body Mass Index 27.98 (73.94 kg, 162.56 cm) as6 07:11 Pain Scale: Adult as6 11:30 sleeping db MDM: 07:10 Patient medically screened. [facility] 09:10 Differential diagnosis: Nonspecific abd pain, viral gastroenteritis, gastroenteritis. jannette Differential Diagnosis altered mental status. Data reviewed: vital signs, nurses notes, lab test result(s), EKG, radiologic studies, plain films. Consideration of Admission/Observation Patient was admitted/placed on observation. Escalation of care including admission/observation considered. I considered the following discharge prescriptions or medication management in the emergency department Medications were administered in the Emergency Department. See MAR. Test considered but Not performed: CT: no ct abd pelvis. Care significantly affected by the following chronic conditions: Cancer. Counseling: I had a detailed discussion with the patient and/or guardian regarding: the historical points, exam findings, and any diagnostic results supporting the discharge/admit diagnosis, the presence of at least one elevated blood pressure reading (>120/80) during this emergency department visit, lab results. 01/04 07:31 Order name: Basic Metabolic Panel; Complete Time: 10:59 jannette 01/04 07:31 Order name: CBC with Diff; Complete Time: 10:59 jannette 01/04 07:31 Order name: LFT's; Complete Time: 10:59 jannette 01/04 07:31 Order name: Magnesium; Complete Time: 10:59 jannette 01/04 07:31 Order name: NT PRO-BNP; Complete Time: 10:59 jannette 01/04 07:31 Order name: PT-INR; Complete Time: 08:48 01/04 07:31 Order name: Troponin HS; Complete Time: 10:59 jannette 01/04 07:31 Order name: Blood Culture Adult (2) 01/04 07:31 Order name: Lactate w/ 2H reflex if indic.; Complete Time: 08:48 jannette 01/04 07:31 Order name: Lipase; Complete Time: 10:59 jannette 01/04 07:31 Order name: Urinalysis w/ reflexes jannette 01/04 07:31 Order name: TSH; Complete Time: 10:59 jannette 01/04 09:02 Order name: T4 Free; Complete Time: 10:59 EDMS 01/04 09:27 Order name: Manual Differential; Complete Time: 10:59 EDMS 01/04 07:31 Order name: XRAY Chest (1 view); Complete Time: 08:48 [facility] 01/04 07:31 Order name: EKG; Complete Time: 07:32 [facility] 01/04 07:31 Order name: Cardiac monitoring; Complete Time: 08:17 [facility] 01/04 07:31 Order name: EKG - Nurse/Tech; Complete Time: 08:29 [facility] 01/04 07:31 Order name: IV Saline Lock; Complete Time: 08:17 [facility] 01/04 07:31 Order name: Labs collected and sent; Complete Time: 08:17 [facility] 01/04 07:31 Order name: O2 Per Protocol; Complete Time: 08:17 [facility] 01/04 07:31 Order name: O2 Sat Monitoring; Complete Time: 08:17 [facility] EC:07 Rate is 108 beats/min. Rhythm is regular. QRS [place] is Normal. OR interval is normal. [facility] QRS interval is normal. QT interval is normal. No Q waves. T waves are Normal. No ST changes noted. Clinical impression: Sinus tachycardia and No evidence of ischemia. Interpreted by me. Reviewed by me. Administered Medications: 07:55 Drug: NS 0.9% IV 500 ml Route: IV; Rate: bolus; Site: left wrist; db 13:05 Follow up: Response: No adverse reaction; IV Status: Completed infusion; IV Intake: db 500ml 07:55 Drug: fentaNYL (PF) IVP 25 mcg Route: IVP; Site: left forearm; db 13:05 Follow up: Response: No adverse reaction db 07:55 Drug: Ondansetron IVP 4 mg Route: IVP; Site: left forearm; db 13:05 Follow up: Response: No adverse reaction db 07:55 Drug: Famotidine IVP 20 mg Route: IVP; Site: left antecubital; db 13:05 Follow up: Response: No adverse reaction db 08:05 Drug: fentaNYL (PF) IVP 25 mcg Route: IVP; Site: right forearm; db 13:06 Follow up: Response: No adverse reaction db 08:49 Drug: NS 0.9% IV 1000 ml Route: IV; Rate: 125 ml/hr; Site: right forearm; db 13:06 Follow up: Response: No adverse reaction; IV Status: Infusion continued upon admission db 08:59 Drug: fentaNYL (PF) IVP 25 mcg Route: IVP; Site: right forearm; db 13:05 Follow up: Response: No adverse reaction db 11:10 Drug: Promethazine IVP 6.25 mg Route: IVP; Site: right antecubital; db 13:06 Follow up: Response: No adverse reaction db 11:10 Drug: morphine IVP or IV 2 mg Route: IVP; Infused Over: 4 mins; Site: right antecubital;db 13:06 Follow up: Response: No adverse reaction db 16:49 Drug: morphine IVP or IV 2 mg Route: IVP; Infused Over: 4 mins; Site: right antecubital;db 19:19 Follow up: Response: No adverse reaction db Disposition Summary: 01/04/23 09:50 Hospitalization Ordered Hospitalization Status: Observation jannette Provider: Joe Campos cha Condition: Fair jannette Problem: new jannette Symptoms: have improved jannette Bed/Room Type: Standard jannette Location: Telemetry/MedSurg (observation)(01/04/23 20:57) ds4 Room Assignment: 405(01/04/23 20:57) ds4 Diagnosis - Vomiting jannette - Diarrhea, unspecified jannette - Dehydration jannette - Hypokalemia jannette Forms: - Medication Reconciliation Form jannette - SBAR form jannette Signatures: Dispatcher [employer] EDMikhail Murray MD MD cha Swanson, Donovan ds4 Albina Webster, KARLA RN cg Tariq Juarez RN RN as6 Brenda Gregory RN RN db Corrections: (The following items were deleted from the chart) 20:50 09:50 Telemetry/MedSurg (observation) jannette cg 20:50 09:50 jannette cg 20:57 20:50 BR ER HOLD cg ds4 20:57 20:50 ERHOLD- cg ds4
--- NOTE | 2023-01-04 09:51 | ER ---
Nurse's Notes [facility] Name: Karrie Sky Age: 82 yrs Sex: Female : 1940 Arrival Date: 01/04/2023 Time: 07:08 Bed 17 Private MD: Diagnosis: Vomiting;Diarrhea, unspecified;Dehydration;Hypokalemia Presentation: 01/04 07:11 Chief complaint: EMS states: called out for nausea, vomiting, diarrhea pt has breast as6 cancer and started chemo on Monday. Coronavirus screen: At this time, the client does not indicate any symptoms associated with coronavirus-19. Ebola Screen: No symptoms or risks identified at this time. Initial Sepsis Screen: Does the patient meet any 2 criteria? No. Patient's initial sepsis screen is negative. Does the patient have a suspected source of infection? No. Patient's initial sepsis screen is negative. Risk Assessment: Do you want to hurt yourself or someone else? Patient reports no desire to harm self or others. Onset of symptoms was January 04, 2023. 07:11 Acuity: LAYLA 3 as6 07:11 Method Of Arrival: EMS: [facility] as6 Triage Assessment: 07:00 General: Appears in no apparent distress. uncomfortable, Behavior is calm. db Historical: - Allergies: 07:09 No Known Allergies; as6 - PMHx: 07:09 breast cancer; as6 - PSHx: 07:09 Total abdominal hysterectomy; colon resection; as6 - Immunization history:: Client reports receiving the 2nd dose of the Covid vaccine, Pneumococcal vaccine is up to date. - Social history:: Smoking status: Patient denies any tobacco usage or history of. Screenin:16 [facility] ED Fall Risk Assessment (Adult) History of falling in the last 3 months, db including since admission Yes- single mechanical fall (1 pt) Confusion or Disorientation No (0 pts) Intoxicated or Sedated No (0 pts) Impaired Gait Yes (1 pt) Mobility Assist Device Used Yes (1 pt) Altered Elimination No (0 pt) Score/Fall Risk Level 3 or more points = High Risk Oriented to surroundings, Maintained a safe environment, Hourly rounding (assess needs \T\ fall precautionary measures) done. 14:19 Abuse screen: Denies threats or abuse. Denies injuries from another. Nutritional db screening: No deficits noted. Tuberculosis screening: No symptoms or risk factors identified. Assessment: 08:22 Reassessment: Patient appears in no apparent distress at this time. Patient and/or db family updated on plan of care and expected duration. Pain level reassessed. Patient is alert, oriented x 3, equal unlabored respirations, skin warm/dry/pink. complains of back pain and bone pain. Is receiving chemo. 08:55 Reassessment: Notified Dr. astudillo patient still has pain. 04/27 went down from 05/28. db Pain: Pain currently is 8 out of 10 on a pain scale. 08:59 General: Appears in no apparent distress. comfortable, Behavior is calm, cooperative. db Pain: Complains of pain in back. Neuro: Level of Consciousness is awake, alert, obeys commands, Oriented to person, place, time, situation, Moves all extremities. Speech is normal, Facial symmetry appears normal. Respiratory: Airway is patent Respiratory effort is even, unlabored, Respiratory pattern is regular, symmetrical. GI: Abdomen is flat, Reports nausea. 09:28 Reassessment: Patient appears in no apparent distress at this time. Patient and/or db family updated on plan of care and expected duration. Pain level reassessed. Patient is alert, oriented x 3, equal unlabored respirations, skin warm/dry/pink. family is at bedside Patient states feeling better. 10:19 Reassessment: Patient appears in no apparent distress at this time. Patient and/or db family updated on plan of care and expected duration. Pain level reassessed. Patient is alert, oriented x 3, equal unlabored respirations, skin warm/dry/pink. 10:22 Reassessment: patient assisted to restroom via wheelchair. db 10:40 Reassessment: patient with bowel movement in room. patient changed and repositioned x 2 db nurses. patient in NAD. patient states has pain. Notified physician. See MAR for morphine medication administration. Vital Signs: 07:00 BP 160 / 68; Pulse 105; Resp 18; Pulse Ox 92% on 2 lpm NC; db 07:11 BP 142 / 69; Pulse 103; Resp 18 S; Temp 98.4(O); Pulse Ox 96% on 2 lpm NC; Weight 73.94 as6 kg (R); Height 5 ft. 4 in. (R); Pain 8/10; 08:00 BP 148 / 66; Pulse 108; Resp 16; Pulse Ox 94% on 2 lpm NC; db 09:00 BP 137 / 58; Pulse 106; Resp 16; Pulse Ox 93% on 2 lpm NC; db 10:47 BP 170 / 73; Pulse 100; Resp 22; Pulse Ox 94% on 2 lpm NC; db 11:30 BP 139 / 67; Pulse 100; Resp 18; Pulse Ox 100% on 2 lpm NC; db 13:00 BP 116 / 59; Pulse 96; Resp 14; Pulse Ox 100% on 2 lpm NC; db 19:25 BP 145 / 68; Pulse 108; Resp 17; Pulse Ox 99% ; ha1 07:11 Body Mass Index 27.98 (73.94 kg, 162.56 cm) as6 07:11 Pain Scale: Adult as6 11:30 sleeping db ED Course: 07:09 Patient arrived in ED. as6 07:10 Mihkail Astudillo MD is Attending Physician. jannette 07:13 Triage completed. as6 07:34 Brenda Gregory RN is Primary Nurse. db 08:05 Inserted saline lock: 22 gauge in right forearm, using aseptic technique. Blood db collected. 08:05 Maintain EMS IV. Dressing intact. Good blood return noted. Site clean \T\ dry. Gauge \T\ db site: left fore arm 24 G. 08:29 XRAY Chest (1 view) In Process Unspecified. EDMS 09:29 Patient has correct armband on for positive identification. Bed in low position. Call db light in reach. Side rails up X2. Client placed on continuous cardiac and pulse oximetry monitoring. NIBP monitoring applied. Warm blanket given. 09:48 Joe Campos MD is Hospitalizing Provider. jannette 19:18 Patient admitted, IV remains in place. db 19:18 No provider procedures requiring assistance completed. db 19:18 Patient placed in an exam room. db 22:18 No provider procedures requiring assistance completed. Patient admitted, IV remains in ha1 place. Administered Medications: 07:55 Drug: NS 0.9% IV 500 ml Route: IV; Rate: bolus; Site: left wrist; db 13:05 Follow up: Response: No adverse reaction; IV Status: Completed infusion; IV Intake: db 500ml 07:55 Drug: fentaNYL (PF) IVP 25 mcg Route: IVP; Site: left forearm; db 13:05 Follow up: Response: No adverse reaction db 07:55 Drug: Ondansetron IVP 4 mg Route: IVP; Site: left forearm; db 13:05 Follow up: Response: No adverse reaction db 07:55 Drug: Famotidine IVP 20 mg Route: IVP; Site: left antecubital; db 13:05 Follow up: Response: No adverse reaction db 08:05 Drug: fentaNYL (PF) IVP 25 mcg Route: IVP; Site: right forearm; db 13:06 Follow up: Response: No adverse reaction db 08:49 Drug: NS 0.9% IV 1000 ml Route: IV; Rate: 125 ml/hr; Site: right forearm; db 13:06 Follow up: Response: No adverse reaction; IV Status: Infusion continued upon admission db 08:59 Drug: fentaNYL (PF) IVP 25 mcg Route: IVP; Site: right forearm; db 13:05 Follow up: Response: No adverse reaction db 11:10 Drug: Promethazine IVP 6.25 mg Route: IVP; Site: right antecubital; db 13:06 Follow up: Response: No adverse reaction db 11:10 Drug: morphine IVP or IV 2 mg Route: IVP; Infused Over: 4 mins; Site: right antecubital;db 13:06 Follow up: Response: No adverse reaction db 16:49 Drug: morphine IVP or IV 2 mg Route: IVP; Infused Over: 4 mins; Site: right antecubital;db 19:19 Follow up: Response: No adverse reaction db Medication: 19:18 VIS not applicable for this client. db Intake: 13:05 IV: 500ml; Total: 500ml. db Outcome: 09:50 Decision to Hospitalize by Provider. jannette 19:18 Admitted to ER Hold. Please see [facility] for further documentation. db 19:18 Condition: stable 19:18 Instructed on the need for admit. 22:18 Admitted to Tele accompanied by tech, family with patient, via stretcher, room 405, ha1 with oxygen, with chart, Report called to KARLA Vargas 22:20 Patient left the ED. ha1 Signatures: Dispatcher [employer] EDMS Mikhail Astudillo MD MD cha Slawson, Ashby, RN RN as6 Krystyna Castellanos RN RN ha1 Brenda Gregory, RN RN db Corrections: (The following items were deleted from the chart) 09:16 08:22 Reassessment: Patient appears in no apparent distress at this time. db db 12:10 10:30 Reassessment: patient with bowel movement in room. patient changed and db repositioned x 2 nurses. patient in NAD. patient states has pain. Notified physician. See MAR for morphine medication administration db 14:17 09:16 [facility] ED Fall Risk Assessment (Adult) History of falling in the last 3 months, db including since admission No falls in past 3 months (0 pts) Confusion or Disorientation No (0 pts) Intoxicated or Sedated No (0 pts) Impaired Gait No (0 pts) Mobility Assist Device Used No (0 pt) Altered Elimination No (0 pt) Score/Fall Risk Level 0 - 2 = Low Risk Oriented to surroundings, Maintained a safe environment, db
[2023-01-04 10:17] LABS: Blood Morphology Comment NOT SEEN (NOT SEEN); Platelet Estimate ADEQ
[2023-01-04 10:18] LABS: Dohle Bodies NOTED; Toxic Granulation PRESENT
[2023-01-04] MEDS ORDERED: PROMETHAZINE INJ 25 MG/ML AMP ONE (11:09)
[2023-01-04 11:10] LABS: Specific Gravity 1.016 (1.005-1.030); Urine Bilirubin NEGATIVE (Negative); Urine Blood Negative (Negative); Urine Clarity Clear (Clear); Urine Color Yellow (Yellow); Urine Glucose NEGATIVE (Negative); Urine Protein NEGATIVE (Negative); Urine Urobilinogen Normal (Normal); Urine pH 5.5 (5.0-7.0)
[2023-01-04] MEDS ORDERED: MORPHINE 2 MG/ML SYR ONE ×3 (11:10→20:26)
[2023-01-04 16:20] VITALS: BMI 27.9
[2023-01-04] MEDS: NA CHLORIDE 0.9% 1,000 ML IV SCH (16:54)
[2023-01-04] MEDS: MORPHINE 2 MG/ML SYR IV PRN (21:00)
--- NOTE | 2023-01-05 00:13 | HP ---
Date of Admission: 01/04/2023 Chief Complaint: Feeling weak, vomiting, and diarrhea. History Of Present Illness: This is an 82-year-old pleasant female patient who recently got diagnose d as having left breast cancer. She started having chemotherapy as of last week on Monday, which was 1 week ago. That was her first session of chemotherapy at [facility] in [place]. She wa s doing fine for couple of days and as of Monday of last week, she started to have nausea, vomiting, diarrhea, and poor appetite. Symptoms continued to get worse and she tried Imodium and prescription medicine for nausea and vomiting that she got from her oncologist and it was not helping her so today with worsening of symptoms and increasing weakness, she came into emergency room and after she was e valuated, she was admitted to the hospital with volume depletion and dehydration problem. I saw her in the emergency room this evening. She denies any abdominal pain, fever, or chills. No blood in st ool. No blood in urine. No hematemesis. Allergies: NO KNOWN ALLERGIES. Medications: List reviewed. Review of Systems: GI: As mentioned above. Constitutional: As mentioned above. All other systems reviewed and negative. Past Medical History: Significant for left breast cancer, pulmonary nodules, hypertension, hyperlipi demia, colon cancer, osteoarthritis at multiple sites, osteopenia, and vitamin D deficiency. Past Surgical History: Cataract surgery, partial pneumonectomy in 2008 and it was not due to any can cer, partial resection of colon in 2004 due to colon cancer, and hysterectomy. Family History: Parents , details unknown. Social History: Negative for smoking and alcohol use. Physical Examination: Vital Signs: Temperature 98.1, pulse 98, respiratory rate 16, blood pressure 158/79, and oxygen satu ration 97%. Height 5 feet 4 inches and weight 163 pounds. General: Awake, alert, oriented, not in distress. HEENT: Head atraumatic, normocephalic. Conjunctivae nonerythematous. Sclerae white. Mouth, no thr ush or edema noted. Ears/Nose, no mass, lesion, discharge noted. Neck: Supple. No JVD, lymph nodes, bruit, thyromegaly noted. Lungs: Bilateral good equal air entry. Clear to auscultation. No rhonchi. No rales. Heart: Normal heart sounds, no murmur or gallop. Abdomen: Soft, bowel sounds normal. No guarding, rigidity, tenderness, mass, hepatosplenomegaly, dis tention, or bruit noted. Extremities: No leg edema. No calf tenderness. Skin: No rash, ulcer, cellulitis. Lymphatics: No lymph node enlargement in neck, supraclavicular, infraclavicular region. Neuro: No focal neurological deficit. Chest: Unremarkable. External Genitalia: Deferred. Rectal: Deferred. Laboratory Data: White count 3.4, hemoglobin 13.4, and platelets 149. Sodium 138, potassium 3.6, ch loride 105, bicarb 29, BUN 11, creatinine 0.85, and glucose 104. Liver function tests unremarkable e xcept total bilirubin 1.5. ProBNP 1495. TSH 4.120. Urinalysis negative. Chest x-ray shows changes of COPD otherwise no acute changes. Impression: 1.Volume depletion. 2.Left breast cancer. 3.Hypertension. 4.Hyperlipidemia. 5.Colon cancer. 6.Osteoarthritis at multiple sites. Plan: We will go ahead and admit the patient to hospital for further evaluation and management of th is problem. The patient is going to be admitted to the hospital for this volume depletion problem. We will go ahead and give her symptomatic treatment for nausea, vomiting, and diarrhea, which is due to her chemotherapy. At this point, there is no sign of any infection. IV fluids will be given. We will repeat blood work tomorrow morning. DVT prophylaxis will be given using Lovenox. I have advis ed the patient and her son and [id number], who were present at bedside that the patient communic ate with her oncologists and notify them regarding this hospital admission so that way they can make decision regarding adjustment on the chemotherapy as her next cycle of chemotherapy will be week afte r next. Starting tomorrow, Hospitalist will take over this patient's care and I have discussed taty rausch with Hospitalist Service this evening. Plan of treatment discussed with the patient and her famil y members, who were at bedside. She takes alprazolam at home as needed for anxiety and we will lennox nue that. We will continue atorvastatin that she takes for her hyperlipidemia and she takes metoprol ol for hypertension, which will be continued as well. Details and plan of treatment discussed with jose pablo. SHIRLENE/MODL Voice ID: [id number]
[2023-01-05] MEDS: NA CHLORIDE 0.9% 1,000 ML IV SCH ×3 (02:20→23:08)
[2023-01-05] MEDS: MORPHINE 2 MG/ML SYR IV PRN ×4 (04:44→21:45)
[2023-01-05 07:11] LABS: Hematocrit 33.4 % (36.0-45.0); Lymphocytes % 12.7 % (15.3-44.8); MCV 89.5 fL (80-100); MPV 9.6 fL (7.6-11.3); RBC Red Blood Cell Count 3.73 M/uL (3.86-4.86)
[2023-01-05 07:24] LABS: Potassium 3.7 mEq/L (3.5-5.1)
[2023-01-05] MEDS: METOPROLOL TAR 50 MG TAB PO SCH ×2 (08:20→20:05)
[2023-01-05] MEDS: FAMOTIDINE 20 MG/2 ML VIAL IV SCH (08:20)
[2023-01-05] MEDS: ENOXAPARIN 40 MG/0.4 ML SQ SCH (08:21)
[2023-01-05 08:23] LABS: Blood Morphology Comment NOT SEEN (NOT SEEN); Platelet Estimate ADEQ
--- NOTE | 2023-01-05 08:29 | RAD REPORT ---
EXAM DESCRIPTION: RAD - Chest Single View - 01/05/2023 5:13 am CLINICAL HISTORY: Follow up admission chest Xray Chest pain. COMPARISON: Chest Single View dated 01/04/2023 FINDINGS: Portable technique limits examination quality. The lungs are emphysematous but grossly clear. Postsurgical changes are seen medial right upper lobe. The heart is normal in size. No displaced fractures.Right port catheter has tip in the SVC. IMPRESSION: COPD without acute process.
--- NOTE | 2023-01-05 08:30 | EKG ---
Test Date: 2023-01-04 Test Time: 08:25:25 Behavioral Health Counselor: ZE MEASUREMENT RESULTS: Intervals: Rate: 108 VA: 144 QRSD: 82 QT: 342 QTc: 458 Mullan: P: 79 VA: 144 QRS: 60 T: 77 INTERPRETIVE STATEMENTS: Sinus tachycardia Otherwise normal ECG No previous ECG available for comparison Electronically Signed On 01-05-23 08:27:49 CDT by Shayne Torres
[2023-01-05] MEDS ORDERED: dexAMETHasone 4 MG/ML VIAL IV ONE (08:41)
[2023-01-05] MEDS ORDERED: METOPROLOL XL 25 MG TAB PO SCH (09:00)
[2023-01-05] MEDS: LOPERAMIDE HCL 2 MG CAPSULE PO PRN ×3 (11:44→20:05)
--- NOTE | 2023-01-05 12:19 | EKG ---
Test Date: 2023-01-05 Test Time: 04:13:03 Machine Woodworking Sander: 37 MEASUREMENT RESULTS: Intervals: Rate: 110 AL: 142 QRSD: 82 QT: 320 QTc: 433 [place]: P: 76 AL: 142 QRS: 43 T: 66 INTERPRETIVE STATEMENTS: Sinus tachycardia Low voltage QRS Cannot rule out Anterior infarct, age undetermined Abnormal ECG Compared to ECG 01/04/2023 08:25:25 Low QRS voltage now present Myocardial infarct finding now present Electronically Signed On 01-05-23 12:18:53 CDT by Shayne Torres
[2023-01-05] MEDS ORDERED: DIPHENOX/ATROP SULF 1 TAB PO ONE (13:12)
--- NOTE | 2023-01-05 13:31 | CON ---
Date of Consultation: 01/05/2023 Reason For Consultation: Ventricular tachycardia. History Of Present Illness: Ms. Sky is 82. No previous cardiac history. Has a history of COPD , dyslipidemia, hypertension, neuropathy, came in with nausea, vomiting, diarrhea, admitted for dehyd ration. TSH was 4.1. BNP was 1495. No cardiac symptoms now, but apparently has had some palpitatio ns at home. She was noted to have 2 short runs of ventricular tachycardia without any hemodynamic co mpromise. These were documented by telemetry. Past Medical History: As stated above. Allergies: NONE. Review of Systems: Negative. Social History: Negative. Family History: Noncontributory. Medications: Includes aspirin, Toprol, Lipitor, Vytorin, inhalers, and Neurontin. Physical Examination: Vital Signs: Stable, afebrile. HEENT: Negative. Neck: Supple with no bruit. Chest: Clear. Cardiac: Revealed a regular rhythm and rate. S4 gallops. Aortic sclerosis murmur. Abdomen: Benign. Extremities: Revealed no clubbing, cyanosis, or edema. Diagnostic Data: As stated earlier. Impression And Plan: Nonsustained ventricular tachycardia due to dehydration, although her magnesium is normal, her potassium is normal, her TSH is slightly elevated, but I do not think this is respons ible for that. Nevertheless, I think we need to get an echo. We need to increase her beta-dione f rom 25 mg daily to 50 mg b.i.d. as long as her blood pressure tolerates it. I think as an outpatient she should have an event monitor study and a Lexiscan and if she continues to have ventricular tachy cardia, we need to consider amiodarone and/or an electrophysiology consult. Meanwhile, we will lennox petere to follow. MICHI/ANIL Voice ID: [id number] Report ID: [id number]
[2023-01-05] MEDS: TRAZODONE 50 MG TABLET PO SCH (20:02)
[2023-01-05] MEDS: GABAPENTIN 300 MG CAP PO SCH (20:05)
[2023-01-05] MEDS: ATORVASTATIN 20 MG TAB PO SCH (20:05)
[2023-01-06] MEDS: ENOXAPARIN 40 MG/0.4 ML SQ SCH (08:53)
[2023-01-06] MEDS: NA CHLORIDE 0.9% 1,000 ML IV SCH ×2 (08:53→18:20)
[2023-01-06] MEDS: FAMOTIDINE 20 MG/2 ML VIAL IV SCH (08:53)
[2023-01-06] MEDS: METOPROLOL TAR 50 MG TAB PO SCH ×2 (08:54→20:43)
[2023-01-06] MEDS: LOPERAMIDE HCL 2 MG CAPSULE PO PRN ×2 (10:24→20:44)
[2023-01-06] MEDS ORDERED: HYDROCORTISONE SUC 100 MG INJ IV ONE (11:20)
[2023-01-06] MEDS: DIPHENOX/ATROP SULF 1 TAB PO PRN ×2 (12:33→18:18)
[2023-01-06] MEDS: MORPHINE 2 MG/ML SYR IV PRN ×2 (14:14→22:10)
--- NOTE | 2023-01-06 16:04 | P.PN ---
Subjective Date of Service: 01/05/23 Had an episode of sustained ventricular tachycardia arrhythmia. Patient was seen by cardiology. Echocardiogram is been ordered and patient's been started on a beta-dione. Patient does not have any prior cardiac issues. Patient also is complaining anorexia and persistent nausea and vomiting. We will co ntinue to have to give her antiemetics. She is also having diarrhea postchemotherapy. Continue with hydration as well but monitoring volume status closely. Awaiting echocardiogram result. Review of Systems 10-point ROS is otherwise unremarkable Physical Examination - Vital Signs Temperature: 96.8 F Blood Pressure: 134/60 Pulse: 54 Respirations: 16 Pulse Ox (%): 99 - Physical Exam General: Alert, In no apparent distress, Oriented x3 Respiratory: Diminished, Crackles/rales Cardiovascular: Regular rate/rhythm, Normal S1 S2, No murmurs Gastrointestinal: Normal bowel sounds, Soft and benign, Non-distended, No tenderness Musculoskeletal: No clubbing, No swelling, No tenderness Neurological: Sensation intact, Cranial nerves 3-12 intact - Studies Medications List Reviewed: Yes Assessment & Plan - Problems (Diagnosis) (1) Sustained ventricular tachycardia Current Visit: Yes Status: Acute (2) Intractable nausea and vomiting Current Visit: Yes Status: Acute (3) Diarrhea Current Visit: Yes Status: Acute (4) Gastroenteritis due to antineoplastic chemotherapy Current Visit: Yes Status: Acute (5) Anorexia nervosa Current Visit: Yes Status: Acute - Plan Plan: 1. IV fluids 2. Antiemetics 3. Antidiarrheal medications 4. Cardiology consultation 5. Echocardiogram 6. Monitor magnesium and potassium 7. Stool studies 8. Her beta-dione therapy 9. Change to inpatient hospitalization 10. GI and DVT prophylaxis Discharge Plan: Home Plan to discharge in: Greater than 2 days - Advance Directives Does patient have a Living Will: No Does patient have a Durable POA for Healthcare: No - Code Status/Comfort Care Code Status Assessed: Yes Code Status: Full Code Critical Care: No Time Spent Managing PTS Care (In Minutes): 35
--- NOTE | 2023-01-06 16:06 | P.PN ---
Date of Service: 01/06/23 Subjective Patient having a hard time with nutrition. She is not eating much. She just seems really weak. She is anorexic and just seems very depressed. May benefit from antidepressant. Physical Examination - Vital Signs reviewed - Physical Exam General: Alert, In no apparent distress, Oriented x3 Respiratory: Diminished, with some end expiratory wheezing Cardiovascular: Regular rate/rhythm, Normal S1 S2, No murmurs Gastrointestinal: Normal bowel sounds, Soft and benign, Non-distended, No tenderness Musculoskeletal: No clubbing, No swelling, No tenderness Neurological: Sensation intact, Cranial nerves 3-12 intact Assessment & Plan - Problems (Diagnosis) (1) Sustained ventricular tachycardia Current Visit: Yes Status: Acute (2) Intractable nausea and vomiting Current Visit: Yes Status: Acute (3) Diarrhea Current Visit: Yes Status: Acute (4) Gastroenteritis due to antineoplastic chemotherapy Current Visit: Yes Status: Acute (5) Anorexia nervosa Current Visit: Yes Status: Acute - Plan Continue with POC as mentioned below: 1. IV fluids; will discontinue in the morning 2. Antiemetics 3. Antidiarrheal medications 4. Cardiology consultation 5. Echocardiogram for sustained V. tach 6. Monitor magnesium and potassium 7. Stool studies 8. Continue with beta-dione therapy 9. Change to inpatient hospitalization 10. GI and DVT prophylaxis Discharge Plan: Home Plan to discharge in: Greater than 2 days - Advance Directives Does patient have a Living Will: No Does patient have a Durable POA for Healthcare: No - Code Status/Comfort Care Code Status Assessed: Yes Code Status: Full Code Critical Care: No Time Spent Managing PTS Care (In Minutes): 35
[2023-01-06] MEDS: GABAPENTIN 300 MG CAP PO SCH (20:43)
[2023-01-06] MEDS: ALPRAZOLAM 0.5 MG TABLET PO PRN (20:43)
[2023-01-06] MEDS: TRAZODONE 50 MG TABLET PO SCH (20:44)
[2023-01-06] MEDS: ATORVASTATIN 20 MG TAB PO SCH (20:45)
[2023-01-06] MEDS ORDERED: HYDROCORTISONE SUC 100 MG INJ IV SCH (21:00)
[2023-01-07] MEDS: NA CHLORIDE 0.9% 1,000 ML IV SCH (04:20)
[2023-01-07 06:25] LABS: Absolute Lymphocytes (CBC) 0.9 K/uL (0.7-4.9); Hematocrit 33.7 % (36.0-45.0); Lymphocytes % 5.6 % (15.3-44.8); MCV 90.1 fL (80-100); MPV 9.6 fL (7.6-11.3); RBC Red Blood Cell Count 3.74 M/uL (3.86-4.86)
[2023-01-07 06:29] LABS: Albumin 2.1 g/dL (3.4-5.0); Bilirubin Total 0.3 mg/dL (0.2-1.0); Protein, Total 4.8 g/dL (6.4-8.2)
[2023-01-07 06:57] LABS: Blood Morphology Comment NOT SEEN (NOT SEEN); Platelet Estimate ADEQ
[2023-01-07] MEDS: ASPIRIN 81 MG CHEWABLE TABLET PO SCH (08:19)
[2023-01-07] MEDS: FAMOTIDINE 20 MG/2 ML VIAL IV SCH (08:19)
[2023-01-07] MEDS: SERTRALINE HCL 50 MG TAB PO SCH (08:19)
[2023-01-07] MEDS: METOPROLOL TAR 50 MG TAB PO SCH ×2 (08:20→21:00)
[2023-01-07] MEDS: ENOXAPARIN 40 MG/0.4 ML SQ SCH (08:20)
[2023-01-07] MEDS: FLUTICASONE FUROATE 200 MCG IH SCH (09:00)
[2023-01-07] MEDS: HOME MED 1 EA UNK (Gabapentin [Neurontin] 800 MG Tablet) PO SCH (09:00)
--- NOTE | 2023-01-07 14:43 | P.PN ---
Date of Service: 01/07/23 Subjective Patient is doing better and patient's and vomiting as well as diarrhea are much better. We will continue with physical therapy. Continuing with advancing diet. Diarrhea is improving. However, patient still is not eating much. If she is able to start eating better then we can possibly discharge her but she is eating roughly 2 to 300 christine a day according to the family. Physical Examination - Vital Signs reviewed - Physical Exam General: Alert, In no apparent distress, Oriented x3 Respiratory: Clear bilaterally Cardiovascular: Regular rate/rhythm, Normal S1 S2, No murmurs Gastrointestinal: Normal bowel sounds, Soft and benign, Non-distended, No tenderness Musculoskeletal: No clubbing, No swelling, No tenderness Neurological: No focal deficits; generalized weakness Assessment & Plan - Problems (Diagnosis) (1) Sustained ventricular tachycardia Current Visit: Yes Status: Acute (2) Intractable nausea and vomiting Current Visit: Yes Status: Acute (3) Diarrhea Current Visit: Yes Status: Acute (4) Gastroenteritis due to antineoplastic chemotherapy Current Visit: Yes Status: Acute (5) Anorexia nervosa Current Visit: Yes Status: Acute - Plan Continue with POC as mentioned below: 1. Hep-Lock IV 2. Antiemetics 3. Antidiarrheal medications 4. Cardiology consultation status; continue with beta-dione therapy 5. Echocardiogram reviewed 6. Monitor magnesium and potassium 7. Stool studies 8. Monitor caloric intake; supplement shakes with meal 9. Change to inpatient hospitalization 10. GI and DVT prophylaxis Discharge Plan: Home Plan to discharge in: Greater than 2 days - Advance Directives Does patient have a Living Will: No Does patient have a Durable POA for Healthcare: No - Code Status/Comfort Care Code Status Assessed: Yes Code Status: Full Code Critical Care: No Time Spent Managing PTS Care (In Minutes): 35
--- NOTE | 2023-01-07 18:40 | PN ---
Date of Progress Note: 01/06/2023 Ms. Sky had not had any further ventricular tachycardia on Lopressor 25 mg b.i.d. The patient i s to have an outpatient followup with us in the office in the near future, when she should have a Jim iscan, and if she does have coronary artery disease, we will need to obviously do a catheterization a nd maybe referral for EP Service for possible further workup including amiodarone in the future. She can go home from our standpoint. MICHI/ANIL Voice ID: [id number] Report ID: [id number]
[2023-01-07] MEDS: MORPHINE 2 MG/ML SYR IV PRN (20:15)
[2023-01-07] MEDS: TRAZODONE 50 MG TABLET PO SCH (20:20)
[2023-01-07] MEDS: ALPRAZOLAM 0.5 MG TABLET PO PRN (20:20)
[2023-01-07] MEDS: ATORVASTATIN 20 MG TAB PO SCH (20:21)
[2023-01-07] MEDS: GABAPENTIN 300 MG CAP PO SCH (20:21)
[2023-01-07] MEDS: LOPERAMIDE HCL 2 MG CAPSULE PO PRN (20:22)
[2023-01-08] MEDS: HOME MED 1 EA UNK (Gabapentin [Neurontin] 800 MG Tablet) PO SCH (09:00)
[2023-01-08] MEDS: FLUTICASONE FUROATE 200 MCG IH SCH (09:00)
[2023-01-08] MEDS: ENOXAPARIN 40 MG/0.4 ML SQ SCH (09:32)
[2023-01-08] MEDS: METOPROLOL TAR 50 MG TAB PO SCH ×2 (09:32→20:18)
[2023-01-08] MEDS: ASPIRIN 81 MG CHEWABLE TABLET PO SCH (09:32)
[2023-01-08] MEDS: SERTRALINE HCL 50 MG TAB PO SCH (09:32)
[2023-01-08] MEDS: FAMOTIDINE 20 MG/2 ML VIAL IV SCH (09:32)
[2023-01-08 12:42] LABS: Hematocrit 36.1 % (36.0-45.0); Lymphocytes % 9.3 % (15.3-44.8); MCV 89.8 fL (80-100); MPV 9.7 fL (7.6-11.3); RBC Red Blood Cell Count 4.02 M/uL (3.86-4.86)
[2023-01-08 12:55] LABS: Potassium 3.7 mEq/L (3.5-5.1)
[2023-01-08] MEDS: ENSURE HIGH PROTEIN 237 ML CAN PO SCH ×2 (13:01→21:00)
[2023-01-08 13:07] LABS: Blood Morphology Comment NOT SEEN (NOT SEEN); Platelet Estimate ADEQ
[2023-01-08] MEDS: ONDANSETRON 4 MG/2 ML VIAL IV PRN ×2 (13:43→20:18)
[2023-01-08] MEDS: ATORVASTATIN 20 MG TAB PO SCH (20:17)
[2023-01-08] MEDS: TRAZODONE 50 MG TABLET PO SCH (20:17)
[2023-01-08] MEDS: ALPRAZOLAM 0.5 MG TABLET PO PRN (20:19)
[2023-01-08] MEDS: GABAPENTIN 300 MG CAP PO SCH (20:20)
--- NOTE | 2023-01-09 05:04 | P.PN ---
Date of Service: 01/08/23 Subjective Patient is an 82-year-old female who presented to the hospital with intractable nausea and vomiting and diarrhea. Patient was status post chemotherapy for breast cancer. Patient has had a history of COPD and she is on home oxygen. Patient is also had a history of colon cancer. After chemotherapy patient developed nausea and vomiting and diarrhea. She was using Imodium at home for the diarrhea with little relief so we changed her up to Lomotil. Her nausea vomiting has improved but she is very anorexic. Her nutrition is very poor. Encouraged her to drink an Ensure high-protein shake at least 2-3 times a day. She did drink 1 yesterday. The family is trying to arrange for some home care. I am not sure if she is going to be strong enough to do her next course of chemotherapy at this time or she may need dose adjustment. Plan is to possibly discharge in the next 24 to 48 hours. We will get social sciences professor to make assistance with home arrangements. If she is eating better then we can possibly discharge her. She also had a episode of nonsustained ventricular tachycardia. Cardiology saw her and recommended increasing beta-dione dosage. Echocardiogram was also done. Patient is currently doing well from a cardiac standpoint. Respiratory status is stable and will continue with home oxygen. Patient has O2 at home already. Anticipate discharge over the next 24 to 48 hours. Physical Examination - Vital Signs reviewed - Physical Exam General: Alert, In no apparent distress, Oriented x3 Respiratory: Diminished breath sounds but otherwise clear Cardiovascular: Regular rate/rhythm, Normal S1 S2, No murmurs Gastrointestinal: Normal bowel sounds, Soft and benign, Non-distended, No tend erness Musculoskeletal: No clubbing, No swelling, No tenderness Neurological: Sensation intact, Cranial nerves 3-12 intact Assessment & Plan - Problems (Diagnosis) (1) Sustained ventricular tachycardia Current Visit: Yes Status: Acute (2) Intractable nausea and vomiting Current Visit: Yes Status: Acute (3) Diarrhea Current Visit: Yes Status: Acute (4) Gastroenteritis due to antineoplastic chemotherapy for breast cancer Current Visit: Yes Status: Acute (5) Anorexia nervosa Current Visit: Yes Status: Acute - Plan Continue with POC as mentioned below: 1. Hep-Lock IV fluids yesterday. Patient needs to increase her nutrition and I do want to fluid overload her. 2. Antiemetics as needed. No more vomiting today. 3. Antidiarrheal medications. This has improved. Stools are soft and more formed 4. Cardiology consultation is appreciated. Echocardiogram completed and beta- dione dose increased. 5. Arrange for discharge planning at this time with home care. 6. GI and DVT prophylaxis Discharge Plan: Home Plan to discharge in: Greater than 2 days - Advance Directives Does patient have a Living Will: No Does patient have a Durable POA for Healthcare: No - Code Status/Comfort Care Code Status Assessed: Yes Code Status: Full Code Critical Care: No Time Spent Managing PTS Care (In Minutes): 35
[2023-01-09 06:51] LABS: Potassium 3.3 mEq/L (3.5-5.1)
[2023-01-09 06:53] LABS: Absolute Lymphocytes (CBC) 1.5 K/uL (0.7-4.9); Hematocrit 30.8 % (36.0-45.0); Lymphocytes % 10.4 % (15.3-44.8); MCV 89.1 fL (80-100); MPV 9.6 fL (7.6-11.3); RBC Red Blood Cell Count 3.46 M/uL (3.86-4.86)
--- NOTE | 2023-01-09 07:11 | ECHO ---
HEIGHT: 5 ft 4 in WEIGHT: 163 lb 0 oz DATE OF STUDY: 01/06/[address]: Shayne Torres MD 2-DIMENSIONAL: YES M.MODE: YES DOPPLER: YES COLOR FLOW: YES TDS: PORTABLE: YES DEFINITY: BUBBLE STUDY: DIAGNOSIS: TACHYCARDIA CARDIAC HISTORY: CATHERIZATION: SURGERY: PROSTHETIC VALVE: PACEMAKER: MEASUREMENTS (cm) DIASTOLIC (NORMALS) SYSTOLIC (NORMALS) IVSd 1.0 (0.6-1.2) LA Diam 3.3 (1.9-4.0) LVEF 62% LVIDd 4.0 (3.5-5.7) LVIDs 2.6 (2.0-3.5) %FS 33% LVPWd 1.3 (0.6-1.2) Ao Diam 2.8 (2.0-3.7) 2 DIMENSIONAL ASSESSMENT: RIGHT ATRIUM: NORMAL LEFT ATRIUM: NORMAL RIGHT VENTRICLE: NORMAL LEFT VENTRICLE: NORMAL TRICUSPID VALVE: NORMAL MITRAL VALVE: NORMAL PULMONIC VALVE: NORMAL AORTIC VALVE: NORMAL PERICARDIAL EFFUSION: NONE AORTIC ROOT: NORMAL LEFT VENTRICULAR WALL MOTION: NORMAL DOPPLER/COLOR FLOW: COMMENTS: 1. MILD PULMONARY HYPERTENSION 47 mmHg 2. NORMAL LEFT VENTRICULAR SIZE AND FUNCTION 3. NO WALL MOTION ABNORMALITY 4. NO EFFUSION TECHNOLOGIST: MARIELENA FERNANDEZ
[2023-01-09] MEDS: HOME MED 1 EA UNK (Gabapentin [Neurontin] 800 MG Tablet) PO SCH (09:00)
[2023-01-09] MEDS ORDERED: BUDESONIDE IH SCH (09:00)
[2023-01-09] MEDS ORDERED: FORMOTEROL IH SCH (09:00)
[2023-01-09] MEDS ORDERED: GLYCOPYRROLATE IH SCH (09:00)
[2023-01-09] MEDS ORDERED: GABAPENTIN 100 MG CAP ONE ×2 (09:31→09:57)
[2023-01-09] MEDS: ENOXAPARIN 40 MG/0.4 ML SQ SCH (09:42)
[2023-01-09] MEDS: ASPIRIN 81 MG CHEWABLE TABLET PO SCH (09:42)
[2023-01-09] MEDS: GLYCOPYRROLATE IH SCH (09:42)
[2023-01-09] MEDS: BUDESONIDE IH SCH (09:42)
[2023-01-09] MEDS: FORMOTEROL IH SCH (09:42)
[2023-01-09] MEDS: METOPROLOL TAR 50 MG TAB PO SCH ×2 (09:42→21:46)
[2023-01-09] MEDS: SERTRALINE HCL 50 MG TAB PO SCH (09:43)
[2023-01-09] MEDS: FAMOTIDINE 20 MG/2 ML VIAL IV SCH (09:45)
[2023-01-09] MEDS: ENSURE HIGH PROTEIN 237 ML CAN PO SCH ×3 (09:49→21:00)
[2023-01-09 10:07] LABS: Blood Morphology Comment NOT SEEN (NOT SEEN); Platelet Estimate DECR
--- NOTE | 2023-01-09 10:08 | RAD REPORT ---
EXAM DESCRIPTION: RAD - Chest Single View - 01/09/2023 9:49 am CLINICAL HISTORY: cough Chest pain. COMPARISON: Chest Single View dated 01/05/2023; Chest Single View dated 01/04/2023 FINDINGS: Portable technique limits examination quality. COPD is present. Postsurgical change with soft tissue nodules present medial right upper lobe. Overal l, lung aeration is not changed since prior study. The heart is normal in size. No displaced fracture s.Right port catheter tip in SVC. IMPRESSION: Stable chest since 01/05/2023.
[2023-01-09] MEDS ORDERED: POTASSIUM CL SA 10 MEQ TAB PO ONE (12:18)
[2023-01-09] MEDS: ATORVASTATIN 20 MG TAB PO SCH (21:46)
[2023-01-09] MEDS: GABAPENTIN 300 MG CAP PO SCH (21:46)
[2023-01-09] MEDS: TRAZODONE 50 MG TABLET PO SCH (21:46)
[2023-01-09] MEDS: ALPRAZOLAM 0.5 MG TABLET PO PRN (21:53)
[2023-01-09 22:16] VITALS: O2SAT 98
[2023-01-09] MEDS: ACETAMINOPHEN 325 MG TABLET PO PRN (22:40)
[2023-01-10] MEDS: ACETAMINOPHEN 325 MG TABLET PO PRN (05:38)
--- NOTE | 2023-01-10 07:25 | PN ---
Date of Progress Note: 01/09/2023 Subjective: When I saw her this morning, she was lying in bed on oxygen nasal cannula 2 L/minute and her daughter was with her at bedside. Since I saw her a few days ago last time, she reports that he r diarrhea has resolved. Denies any nausea, vomiting. Denies any abdominal pain. She reports that she feels extremely weak, tired, has no energy. Physical Examination: Vital Signs: Reviewed. She remains afebrile. HEENT: Unremarkable. Lungs: Clear to auscultation. Heart: Sounds normal. Abdomen: Soft. Bowel sounds normal. No guarding, rigidity, tenderness, distention. Extremities: No leg edema. Laboratory Data: Chest x-ray today was unremarkable for any acute changes. White count 14.10, hemog lobin 10.2, platelets 149. Sodium 143, potassium 3.3, chloride 110, bicarb 31, BUN 9, creatinine 0.5 6, glucose 94. Impression: 1.Volume depletion. 2.Generalized weakness. 3.Debility. 4.Hypokalemia. 5.Anemia. 6.Breast cancer. Plan: The patient received only 1 dose of chemotherapy and she is having significant side effects. She is not sure what to do now and I have encouraged her that she should communicate with her oncolog ist to see whether they can reduce the dose of chemotherapy or if she and the patient and her family will communicate with oncologist regarding this. Her elevated WBC count was due to Neulas ta, which she received last week after the chemotherapy and at this point, there is no evidence of an y infection. She has not received any antibiotics during this hospitalization and highest WBC count was 21,000 yesterday and today it has started to go down. We will have Physical Therapy continue to work with her and replace potassium as per order. Her room air oxygen saturation today was 85%, so s he was placed back on nasal cannula oxygen at 2 L/minute. She lives at home with her who is not going to be able to provide care to her and I have discussed details with her and her daughter re garding importance of family member to be present with her all the time or caregiver until her condit ion improves back to baseline where she is able to leave and manage herself on her own. Social Servi ce was consulted to assist with discharge planning. SHIRLENE/MODL Voice ID: [id number] Report ID: [id number]
[2023-01-10] MEDS: ENOXAPARIN 40 MG/0.4 ML SQ SCH (08:33)
[2023-01-10] MEDS: SERTRALINE HCL 50 MG TAB PO SCH (08:34)
[2023-01-10] MEDS: FAMOTIDINE 20 MG/2 ML VIAL IV SCH (08:34)
[2023-01-10] MEDS: METOPROLOL TAR 50 MG TAB PO SCH (08:35)
[2023-01-10] MEDS: ASPIRIN 81 MG CHEWABLE TABLET PO SCH (08:35)
[2023-01-10] MEDS: BUDESONIDE IH SCH (08:36)
[2023-01-10] MEDS: GABAPENTIN 300 MG CAP PO SCH (08:36)
[2023-01-10] MEDS: FORMOTEROL IH SCH (08:36)
[2023-01-10] MEDS: GLYCOPYRROLATE IH SCH (08:36)
[2023-01-10] MEDS: ENSURE HIGH PROTEIN 237 ML CAN PO SCH (08:39)
[2023-01-10] MEDS: HOME MED 1 EA UNK (Gabapentin [Neurontin] 800 MG Tablet) PO SCH (08:46)
[2023-01-10 08:58] VITALS: TEMP 98.5
[2023-01-10 11:43] VITALS: BP 119/59
--- NOTE | 2023-01-12 06:28 | DS ---
Date of Discharge: 01/10/2023 Disposition: Discharged to go home. Physical Examination: HEENT: Unremarkable. Lungs: Clear to auscultation. Heart: Sounds normal. Abdomen: Soft. Bowel sounds normal. No guarding, rigidity, tenderness, distention. Extremities: No leg edema. Laboratory Data: Upon admission; white count 3.40, hemoglobin 13.4, platelets 149. Highest WBC coun t was 21 with hemoglobin 11.7 and platelets 156 on 01/08/2023. Last CBC from yesterday; white count 14.1, hemoglobin 10.2, platelets 149. Initial chemistry upon admission; sodium 138, potassium 3.6, c hloride 105, bicarb 29, BUN 11, creatinine 0.85, glucose 104, total bilirubin 1.5, direct bilirubin 1 , AST 25, ALT 22, alkaline phosphatase 103. ProBNP 1495. TSH 4.120. Lipase 7. Repeat bilirubin wa s 0.3. Last chemistry; sodium 143, potassium 3.3, chloride 110, bicarb 31, BUN 9, creatinine 0.56, g lucose 94. Echocardiogram done during this hospitalization shows ejection fraction normal at 62%, pu lmonary hypertension, otherwise it was normal echocardiogram. Hospital Course: An 82-year-old pleasant female patient admitted to the hospital after she came into emergency room complaining of feeling weak, vomiting, and diarrhea. Please see dictated H and P for more information. The patient started this vomiting and diarrhea after her first round of chemother apy and her symptoms did not improve, so she came into emergency room. After she was evaluated, she was admitted to the hospital with volume depletion problem. She was given rehydration and during [facility] hospitalization, her vomiting and diarrhea problem resolved. Neulasta transdermal patch that she r eceived is few days prior to this hospital admission and that actually resulted in elevated WBC count . There was no evidence of any infection and she did not require any antibiotics. Her WBC count has started to go down on its own. She is having significant generalized weakness and debility from [facility] 1 round of chemotherapy and feels very tired, and she does not think that she can go for another ro und of chemotherapy. I did reach out to her oncologist in [place] and discussed all the details with her and encouraged the patient and the patient's daughter to communicate with her to see if there is option of either dose reduction on the current chemotherapy or different type of chemotherapy since she is not able to tolerate this. Physical Therapy was consulted, Social Service was consulted to arturo becerra arrangements for home health and home physical therapy, and the patient was discharged to go home in stable condition. The patient lives at home with her who is not able to provide any deena tance, so the patient's family will try to stay with her to provide assistance and they will also nas e arrangements for caregivers to assist. Final Diagnoses: 1.Volume depletion. 2.Left breast cancer. 3.Hypertension. 4.Hyperlipidemia. 5.Colon cancer. 6.Osteoarthritis, multiple sites. 7.Generalized weakness. 8.Debility. 9.Chronic respiratory failure with hypoxia. Discharge Medications And Instructions: 1.Continue all prior home medications. 2.Follow up with oncologist, Dr. Chung for your appointment. 3.Follow up at my office next week. 4.Use home oxygen at 2 L/minute nasal cannula during nighttime and as needed during daytime. SHIRLENE/MODL Voice ID: [id number] Report ID: [id number]
== END 2023-01-10 14:33 | disposition home health service (06) | DRG 394 ==
LOC: ER 07:08 → INTOOBSV 09:52 → ERHOLD 09:52 → OBSVTOIN 09:52 → 4TH 21:04 → OBSVTOIN 01-06 16:05
PROVIDERS: ADMIT Hospitalist; ATTEND Internal Medicine
DX: K52.1 Toxic gastroenteritis and colitis (principal); F50.00 Anorexia nervosa, unspecified; I47.20 Ventricular tachycardia, unspecified; J96.11 Chronic respiratory failure with hypoxia; T45.1X5A Adverse effect of antineoplastic and immunosuppressive drugs, initial encounter; E86.9 Volume depletion, unspecified; E86.0 Dehydration; E87.6 Hypokalemia; I10 Essential (primary) hypertension; E78.5 Hyperlipidemia, unspecified; J44.9 Chronic obstructive pulmonary disease, unspecified; F32.A Depression, unspecified; D64.9 Anemia, unspecified; I27.20 Pulmonary hypertension, unspecified; M19.09 Primary osteoarthritis, other specified site; C50.912 Malignant neoplasm of unspecified site of left female breast; Z68.27 Body mass index [BMI] 27.0-27.9, adult; Z99.81 Dependence on supplemental oxygen; Z90.49 Acquired absence of other specified parts of digestive tract; Z90.710 Acquired absence of both cervix and uterus; Z79.899 Other long term (current) drug therapy
CPT/HCPCS: 36415; 71045; 80048; 80053; 80076; 81003; 83605; 83690; 83735; 83880; 84439; 84443; 84484; 85025; 85610; 87040; 93005; 93306; 97110; 97116; 97161; 97530; 99285; G0378; J1100; J1650; J1720; J2270; J2405; J2550; J3010; J7030; J7040

== ENCOUNTER 2024-07-18 10:49 | Emergency (ER) | payer OTHER ==
[2024-07-18 12:02] LABS: SARS-CoV-2 Antigen CONTROL BLUE LINE VIS/BG OK; SARS-CoV-2 Antigen Rapid Res Negative (Negative)
[2024-07-18] MEDS ORDERED: IPRATROPIUM BROM 0.5MG/2.5ML ONE (12:07)
[2024-07-18] MEDS ORDERED: LEVALBUTEROL 1.25 MG/3 ML NEB ONE (12:07)
[2024-07-18] MEDS ORDERED: METHYLPREDNISOLONE 125 MG INJ ONE (12:07)
[2024-07-18 12:38] LABS: Absolute Basophils 0.1 K/uL (0-0.5); Absolute Eosinophils 0.2 K/uL (0-0.5); Absolute Monocytes 0.8 K/uL (0.1-1.3); Absolute Neutrophil 5.1 K/uL (1.8-8.0); Basophils % 1.4 % (0-1.3); Eosinophils % 3.2 % (0-4.4); Hematocrit 42.1 % (36.0-45.0); Hemoglobin 13.7 g/dL (12.0-15.0); Lymphocytes % 13.7 % (15.3-44.8); MCH 31.8 pg (27.0-35.0); MCHC 32.6 g/dL (32.0-36.0); MCV 97.5 fL (80-100); MPV 8.6 fL (7.6-11.3); Monocytes % 11.7 % (3.3-12.3); Platelets 315 thou/uL (152-406); RBC Red Blood Cell Count 4.32 M/uL (3.86-4.86); Red Cell Distribution Width 14.6 % (12.1-15.2)
[2024-07-18 12:43] LABS: PT Prothrombin Time 12.2 SECONDS (9.4-12.5); PTT, Activated Partial Thromb 25.7 SECONDS (24.3-36.9); Protime INR 1.09
[2024-07-18 12:56] LABS: Albumin 2.6 g/dL (3.4-5.0); Albumin/Globulin Ratio 0.7 (1.1-1.8); Anion Gap 7.7 mEq/L (5.0-15.0); Bilirubin Total 0.7 mg/dL (0.2-1.0); Globulin 3.9 g/dL (2.3-3.5); Potassium 3.7 mEq/L (3.5-5.1); Protein, Total 6.5 g/dL (6.4-8.2)
--- NOTE | 2024-07-18 13:10 | RAD REPORT ---
Procedure: Chest Single View HISTORY: Chest pain COMPARISON: 2022 FINDINGS: Calcified mass left upper lobe without change. Post surgical changes involving the chest. Central venous catheter in place. Lungs are hyperaerated. The lungs appear clear of acute infiltrate. No significant pleural effusion noted. The heart is normal size. IMPRESSION: No acute abnormality is displayed.
--- NOTE | 2024-07-18 13:54 | ER ---
Nurse's Notes [facility] Name: Karrie Sky Age: 83 yrs Sex: Female : 1940 Arrival Date: 07/18/2024 Time: 10:49 Bed 8 Private MD: Diagnosis: COPD/ Chronic obstructive pulmonary disease with (acute) exacerbation Presentation: 07/18 10:58 Chief complaint: EMS states: SOB/COUGH x2 DAYS. Coronavirus screen: cough unrelated to bp allergies, shortness of breath. Ebola Screen: No symptoms or risks identified at this time. Initial Sepsis Screen: Does the patient meet any 2 criteria? No. Patient's initial sepsis screen is negative. Does the patient have a suspected source of infection? No. Patient's initial sepsis screen is negative. Risk Assessment: Do you want to hurt yourself or someone else? Patient reports no desire to harm self or others. Onset of symptoms is unknown. Care prior to arrival: Medication(s) given: Albuterol Neb x 1. 10:58 Method Of Arrival: EMS: [facility] bp 10:58 Acuity: LAYLA 3 bp Triage Assessment: 11:00 General: Appears in no apparent distress. Behavior is calm, cooperative, appropriate bp for age. Pain: Denies pain. EENT: No deficits noted. Neuro: No deficits noted. Cardiovascular: No deficits noted. Respiratory: Reports shortness of breath Breath sounds with wheezes bilaterally. GI: No signs and/or symptoms were reported involving the gastrointestinal system. : No signs and/or symptoms were reported regarding the genitourinary system. Derm: No deficits noted. Musculoskeletal: No deficits noted. Historical: - Allergies: 11:00 No Known Allergies; bp - Home Meds: 11:00 prednisone 20 mg oral tablet 1 tabs daily [Active]; metoprolol succinate 50 mg oral bp Tablet, Extended Release 24 hr 2 tabs daily [Active]; alprazolam 0.5 mg Oral tablet 1 tab 2 times per day [Active]; gabapentin 800 mg oral tablet 2 tabs every day at bedtime [Active]; trazodone 100 mg Oral tablet 1 tab every day at bedtime [Active]; amlodipine 5 mg tablet 1 tab daily [Active]; sertraline 50 mg oral tablet 1 tab daily [Active]; - PMHx: 11:00 breast cancer; Chronic obstructive lung disease; bp - PSHx: 11:00 colon resection; Total abdominal hysterectomy; bp - Immunization history:: Adult Immunizations up to date. - Infectious Disease History:: Denies. - Family history:: not pertinent. - Social history:: Smoking status: Patient denies any tobacco usage or history of. - Hospitalizations: : No recent hospitalization is reported. Screenin:[facility] ED Fall Risk Assessment (Adult) History of falling in the last 3 months, tm6 including since admission No falls in past 3 months (0 pts) Confusion or Disorientation No (0 pts) Intoxicated or Sedated No (0 pts) Impaired Gait No (0 pts) Mobility Assist Device Used No (0 pt) Altered Elimination No (0 pt) Score/Fall Risk Level 0 - 2 = Low Risk Oriented to surroundings, Maintained a safe environment, Educated pt \T\ family on fall prevention, incl call for assistance when getting out of bed. Abuse screen: Denies threats or abuse. Denies injuries from another. Nutritional screening: No deficits noted. Tuberculosis screening: No symptoms or risk factors identified. Assessment: 11:03 General: Appears in no apparent distress. Behavior is calm, cooperative. Pain: Denies tm6 pain. Neuro: Level of Consciousness is awake, alert, obeys commands, Oriented to person, place, time, situation. Cardiovascular: Reports shortness of breath, Patient's skin is warm and dry. Respiratory: Reports shortness of breath since x2 days cough that is since x2 days Airway is patent Respiratory effort is even, unlabored, Respiratory pattern is regular, symmetrical. GI: No signs and/or symptoms were reported involving the gastrointestinal system. Abdomen is flat, non-distended. : No signs and/or symptoms were reported regarding the genitourinary system. EENT: No signs and/or symptoms were reported regarding the EENT system. Derm: No signs and/or symptoms reported regarding the dermatologic system. Musculoskeletal: No signs and/or symptoms reported regarding the musculoskeletal system. 13:02 Reassessment: Patient and/or family updated on plan of care and expected duration. Pain tm6 level reassessed. Patient is alert, oriented x 3, equal unlabored respirations, skin warm/dry/pink. Vital Signs: 10:58 BP 122 / 88; Pulse 60; Resp 16; Temp 98.1; Pulse Ox 96% ; bp 11:53 BP 119 / 65; Pulse 55; Resp 14; Pulse Ox 99% on 2 lpm NC; MAP 78 mmHg; tm6 13:01 BP 120 / 46; Pulse 56; Pulse Ox 97% on 2 lpm NC; MAP 69 mmHg; tm6 14:14 BP 123 / 51; Pulse 54; Resp 14; Temp 98.1; Pulse Ox 95% on 2 lpm NC; MAP 72 mmHg; Pain tm6 0/10; 14:14 Pain Scale: Adult tm6 ED Course: 10:50 Patient arrived in ED. rn 10:50 Reji Lobo MD is Attending Physician. rn 10:51 Eliezer Novak, KARLA is Primary Nurse. bp 10:59 Triage completed. bp 11:03 Arm band placed on. bp 11:03 Patient has correct armband on for positive identification. Bed in low position. Call tm6 light in reach. Side rails up X2. Provided Education on: use of call cedillo. Client placed on continuous cardiac and pulse oximetry monitoring. NIBP monitoring applied. billing control clerk on. Pulse ox on. NIBP on. Door closed. Noise minimized. Warm blanket given. 11:29 EKG done, by ED staff, reviewed by Reji Lobo MD. tm6 11:50 Missed attempt(s): 22 gauge in left forearm. Bleeding controlled, band aid applied, tm6 catheter tip intact. 11:55 Radiology exam delayed due to nurse in room at this time starting IV/blood work. will md2 return for x-ray. 12:25 Initial lab(s) drawn, by me, sent to lab. First set of blood cultures drawn by me, bp Second set of blood cultures drawn by me. 12:27 Inserted saline lock: 22 gauge in right forearm, using aseptic technique. Blood bp collected. Flushed with 10 mL NS. 12:57 Chest Single View XRAY In Process Unspecified. EDMS 13:53 Keaton Campos MD is Referral Physician. rn 14:15 No provider procedures requiring assistance completed. IV discontinued, intact, tm6 bleeding controlled, No redness/swelling at site. Pressure dressing applied. Administered Medications: 12:27 Drug: MethylPrednisoLONE IVP 125 mg IVP once Route: IVP; Site: right forearm; bp 14:13 Follow up: Response: No adverse reaction tm6 12:27 Drug: Levalbuterol Inhalation 1.25 mg Inhalation once Route: Inhalation; bp 14:14 Follow up: Response: No adverse reaction tm6 12:27 Drug: Ipratropium Inhalation Aerosol 0.5 mg Inhalation once Route: Inhalation; bp 14:14 Follow up: Response: No adverse reaction tm6 14:14 Drug: LevOfloxacin PO 500 mg PO once Route: PO; tm6 14:14 Follow up: Response: Medication administered at discharge. tm6 Medication: 11:03 VIS not applicable for this client. tm6 Outcome: 13:54 Discharge ordered by MD. rn 14:15 Discharged to home via wheelchair, with family, tm6 14:15 Condition: stable 14:15 Discharge instructions given to patient, family, Instructed on discharge instructions, follow up and referral plans. medication usage, Demonstrated understanding of instructions, follow-up care, medications, Prescriptions given X 3, 14:15 Patient left the ED. tm6 Signatures: Dispatcher [employer] EDMS Reji Lobo MD MD rn Peltier, Brian, RN RN Rachel Che md2 John Quintana RN RN tm6 Corrections: (The following items were deleted from the chart) 11:51 11:50 Missed attempt(s): 22 gauge in left forearm. tm6 tm6
--- NOTE | 2024-07-18 13:55 | EDPHYS ---
Physician Documentation [facility] Name: Karrie Sky Age: 83 yrs Sex: Female : 1940 Arrival Date: 07/18/2024 Time: 10:49 Bed 8 Private MD: ED Physician Reji Lobo HPI: 07/18 10:51 This 83 yrs old Female presents to ER via Unassigned with complaints of sob, cough. rn 10:51 The patient has shortness of breath at rest, with light activity. Onset: The rn symptoms/episode began/occurred 3 day(s) ago. Duration: The symptoms are continuous. The patient's shortness of breath is aggravated by exertion, light activity, is alleviated by nothing. Severity of symptoms: At their worst the symptoms were moderate in the emergency department the symptoms are unchanged. The patient has experienced similar episodes in the past. The patient has not recently seen a physician. Patient reports feeling sick for the last few days. No fever but having chills and productive cough. Shortness of breath and inhalers are not really helping. No chest pain. No hemoptysis. No history of DVT or PE. is at home sick as well. Has history of COPD.. Historical: - Allergies: 11:00 No Known Allergies; bp - Home Meds: 11:00 prednisone 20 mg oral tablet 1 tabs daily [Active]; metoprolol succinate 50 mg oral bp Tablet, Extended Release 24 hr 2 tabs daily [Active]; alprazolam 0.5 mg Oral tablet 1 tab 2 times per day [Active]; gabapentin 800 mg oral tablet 2 tabs every day at bedtime [Active]; trazodone 100 mg Oral tablet 1 tab every day at bedtime [Active]; amlodipine 5 mg tablet 1 tab daily [Active]; sertraline 50 mg oral tablet 1 tab daily [Active]; - PMHx: 11:00 breast cancer; Chronic obstructive lung disease; bp - PSHx: 11:00 colon resection; Total abdominal hysterectomy; bp - Immunization history:: Adult Immunizations up to date. - Infectious Disease History:: Denies. - Family history:: not pertinent. - Social history:: Smoking status: Patient denies any tobacco usage or history of. - Hospitalizations: : No recent hospitalization is reported. ROS: 10:51 Constitutional: Negative for fever, positive for chills Cardiovascular: Negative for rn chest pain, palpitations, and edema, Respiratory: Positive for cough and shortness of breath Abdomen/GI: Positive for nausea and diarrhea, negative for abdominal pain MS/Extremity: Negative for injury and deformity, Neuro: Negative for weakness, numbness, tingling, and seizure, Exam: 10:51 Constitutional: This is a well developed, well nourished patient who is awake, alert visual journalist: Regular rate and rhythm. No pulse deficits. Respiratory: Mild tachypnea, diminished breath sounds at bases and faint expiratory wheezing noted Abdomen/GI: Soft, nontender MS/ Extremity: Pulses equal, no cyanosis. Neuro: Awake and alert, GCS 15 14:23 ECG was reviewed by the Attending Physician. rn Vital Signs: 10:58 BP 122 / 88; Pulse 60; Resp 16; Temp 98.1; Pulse Ox 96% ; bp 11:53 BP 119 / 65; Pulse 55; Resp 14; Pulse Ox 99% on 2 lpm NC; MAP 78 mmHg; tm6 13:01 BP 120 / 46; Pulse 56; Pulse Ox 97% on 2 lpm NC; MAP 69 mmHg; tm6 14:14 BP 123 / 51; Pulse 54; Resp 14; Temp 98.1; Pulse Ox 95% on 2 lpm NC; MAP 72 mmHg; Pain tm6 0/10; 14:14 Pain Scale: Adult tm6 MDM: 10:50 Medical Screening Exam initiated rn 13:52 Differential diagnosis: Chronic Obstructive Pulmonary Disease pneumonia, Pneumothorax rn pulmonary edema. Data reviewed: vital signs, nurses notes, lab test result(s), radiologic studies, plain films. Consideration of Admission/Observation Escalation of care including admission/observation considered. Admission considered for COPD exacerbation but after discussion with family member and patient, they would like to go home as she has oxygen/inhalers, and I will prescribe antibiotics and steroids. Patient would like to go home and feels much better.. Counseling: I had a detailed discussion with the patient and/or guardian regarding the historical points, exam findings, and any diagnostic results supporting the discharge/admit diagnosis, lab results, radiology results, the need for outpatient follow up, to return to the emergency department if symptoms worsen or persist or if there are any questions or concerns that arise at home. Response to treatment: the patient's symptoms have markedly improved after treatment, and as a result, I will discharge patient. Special discussion: I discussed with the patient/guardian in detail that at this point there is no indication for admission to the hospital. It is understood, however, that if the symptoms persist or worsen the patient needs to return immediately for re-evaluation. 07/18 11:18 Order name: Blood Culture Adult (2) rn 07/18 11:18 Order name: CBC with Diff; Complete Time: 12:46 rn 07/18 11:18 Order name: CMP; Complete Time: 13: rn 07/18 11:18 Order name: Lactate w/ 2H reflex if indic.; Complete Time: 13: rn 07/18 11:18 Order name: Protime (+inr); Complete Time: 12:46 rn 07/18 11:18 Order name: Ptt, Activated; Complete Time: 12:46 rn 07/18 11:18 Order name: Flu; Complete Time: 12:46 rn 07/18 11:18 Order name: SARS RAPID; Complete Time: 12: rn 07/18 11:18 Order name: Chest Single View XRAY; Complete Time: 13:11 rn 07/18 11:18 Order name: Accucheck; Complete Time: 12:03 rn 07/18 11:18 Order name: Cardiac monitoring; Complete Time: 11: rn 07/18 11:18 Order name: EKG - Nurse/Tech; Complete Time: : rn 07/18 11:18 Order name: IV Saline Lock - Large Bore; Complete Time: 12: rn 07/18 11:18 Order name: Labs collected and sent; Complete Time: 12: rn 07/18 11:18 Order name: O2 Per Protocol; Complete Time: 11: rn 07/18 11:18 Order name: O2 Sat Monitoring; Complete Time: 11: rn 07/18 11:18 Order name: Vital Signs; Complete Time: 11: rn EC:23 Rate is 52 beats/min. Rhythm is regular. QRS [place] is Normal. DC interval is normal. QRS rn interval is normal. QT interval is normal. No Q waves. T waves are Normal. No ST changes noted. Clinical impression: Sinus bradycardia. Interpreted by me. Reviewed by me. Administered Medications: 12:27 Drug: MethylPrednisoLONE IVP 125 mg IVP once Route: IVP; Site: right forearm; bp 14:13 Follow up: Response: No adverse reaction tm6 12:27 Drug: Levalbuterol Inhalation 1.25 mg Inhalation once Route: Inhalation; bp 14:14 Follow up: Response: No adverse reaction tm6 12:27 Drug: Ipratropium Inhalation Aerosol 0.5 mg Inhalation once Route: Inhalation; bp 14:14 Follow up: Response: No adverse reaction tm6 14:14 Drug: LevOfloxacin PO 500 mg PO once Route: PO; tm6 14:14 Follow up: Response: Medication administered at discharge. tm6 Disposition Summary: 07/18/24 13:54 Discharge Ordered Notes: Location: Home rn Problem: an acute exacerbation rn Symptoms: have improved rn Condition: Stable rn Diagnosis - COPD/ Chronic obstructive pulmonary disease with (acute) exacerbation rn Followup: rn - With: Keaton Campos MD - When: 2 - 3 days - Reason: Recheck today's complaints, Re-evaluation by your physician Discharge Instructions: - Discharge Summary Sheet rn - Chronic Obstructive Pulmonary Disease Exacerbation rn Forms: - Medication Reconciliation Form rn - Antibiotic rn infusion - Prescription Opioid Use rn - Patient Portal Instructions rn - Leadership Thank You Letter rn Prescriptions: - ondansetron 4 mg Oral Tablet,disintegrating - take 1 tablet ORAL route every 8-10 hours As needed; 14 tablet; Refills: 0, rn Product Selection Permitted - Prednisone 20 mg Oral Tablet - take 3 tablets ORAL route once daily for 5 days; 15 tablet; Refills: 0, Product rn Selection Permitted - levofloxacin 500 mg Oral tablet - take 1 tablet ORAL route once daily for 7 days; 7 tablet; Refills: 0, Product rn Selection Permitted Signatures: Dispatcher [employer] EDNH Reji Lobo MD MD rn Peltier, Brian RN RN John Horne RN RN tm6 Corrections: (The following items were deleted from the chart) 10:55 10:51 Patient reports feeling sick for the last few days. No fever but having chills rn and productive cough. Shortness of breath and inhalers are not really helping. No chest pain. No hemoptysis. No history of DVT or PE.. rn 11:19 11:19 BLOOD CULTURE*+BA.LAB.BRZ ordered. EDMS EDMS 11:19 11:19 CBC+H.LAB.BRZ ordered. EDMS EDMS 11:19 11:19 COMPREHENSIVE METABOLIC PANEL+C.LAB.BRZ ordered. EDMS EDMS 11: 11:19 LACTATE+C.LAB.BRZ ordered. EDMS EDMS 11:19 PROTIME (+INR)+COAG.LAB.BRZ ordered. EDMS EDMS 11:19 PTT, ACTIVATED+COAG.LAB.BRZ ordered. EDMS EDMS 11:19 Influenza Screen (A \T\ B)+BA.LAB.BRZ ordered. EDMS EDMS 11:19 SARS-COV-2 Antigen Rapid+I.LAB.BRZ ordered. EDMS EDMS 11: 11:19 Chest Single View+RAD.RAD.BRZ ordered. EDMS EDMS
[2024-07-18 14:47] VITALS: BP 123/51; TEMP 98.1; O2SAT 95
--- NOTE | 2024-07-22 12:24 | EKG ---
Test Date: 2024-07-18 Test Time: 11:27:11 Hardboard Grinder: FABRICIO MEASUREMENT RESULTS: Intervals: Rate: 52 [place]: 146 QRSD: 82 QT: 448 QTc: 416 [place]: P: 72 [place]: 146 QRS: 15 T: 70 INTERPRETIVE STATEMENTS: Sinus bradycardia Otherwise normal ECG Compared to ECG 01/22/2023 06:10:10 Sinus rhythm no longer present Atrial premature complex(es) no longer present ST (T wave) deviation no longer present Electronically Signed On 07-22-24 12:17:59 PELLETIZER TENDER by Lasha Schwarz
== END 2024-07-18 14:15 | disposition home or self-care (01) ==
LOC: ER 10:49
DX: J44.1 Chronic obstructive pulmonary disease with (acute) exacerbation (principal); Z11.52 Encounter for screening for COVID-19
CPT/HCPCS: 93005; 87040 ×2; 85025; 36415; 85610; 83605; 85730; 80053; 87804 ×2; 71045; 96374; 99285; 87811; J7614; J7644; J2919

== ENCOUNTER 2024-09-03 18:31 | Inpatient (IN) | payer OTHER ==
[2024-09-03 19:16] LABS: Absolute Basophils 0.1 K/uL (0-0.5); Absolute Lymphocytes (CBC) 1.2 K/uL (0.7-4.9); Absolute Monocytes 0.8 K/uL (0.1-1.3); Absolute Neutrophil 5.5 K/uL (1.8-8.0); Eosinophils % 0.5 % (0-4.4); Hematocrit 40.2 % (36.0-45.0); Hemoglobin 13.4 g/dL (12.0-15.0); Lymphocytes % 16.4 % (15.3-44.8); MCH 31.5 pg (27.0-35.0); MCHC 33.4 g/dL (32.0-36.0); MCV 94.4 fL (80-100); MPV 9.1 fL (7.6-11.3); Monocytes % 10.2 % (3.3-12.3); Neutrophils % 71.9 % (41.7-73.7); Platelets 257 thou/uL (152-406); RBC Red Blood Cell Count 4.26 M/uL (3.86-4.86); Red Cell Distribution Width 13.7 % (12.1-15.2)
[2024-09-03 19:20] LABS: PT Prothrombin Time 12.6 SECONDS (9.4-12.5); PTT, Activated Partial Thromb 26.5 SECONDS (24.3-36.9); Protime INR 1.13
[2024-09-03 19:28] LABS: AST/SGOT 17 U/L (15-37); Albumin 3.4 g/dL (3.4-5.0); Alkaline Phosphatase 82 U/L (45-117); Anion Gap 8.1 mEq/L (5.0-15.0); BUN Blood Urea Nitrogen 10 mg/dL (7-18); Bicarbonate 28 mEq/L (21-32); Bilirubin Total 0.8 mg/dL (0.2-1.0); Globulin 3.3 g/dL (2.3-3.5); Glomerular Filtration Rate 61 ml/min (=/>90); Glucose Level 117 mg/dL (74-106); Potassium 4.1 mEq/L (3.5-5.1); Protein, Total 6.7 g/dL (6.4-8.2); SARS-CoV-2 Antigen CONTROL BLUE LINE VIS/BG OK; SARS-CoV-2 Antigen Rapid Res Negative (Negative); Sodium Level 138 mEq/L (136-145)
[2024-09-03 19:29] LABS: ALT/SGPT < 14 U/L (13-56)
--- NOTE | 2024-09-03 19:41 | ER ---
Nurse's Notes [facility] Name: Karrie Sky Age: 83 yrs Sex: Female : 1940 Arrival Date: 09/03/2024 Time: 18:31 Bed 20 Private MD: Diagnosis: COPD/ Chronic obstructive pulmonary disease with (acute) exacerbation;Hypoxemia;Dyspnea, unspecified Presentation: 09/03 18:34 Chief complaint: EMS states: patient's was recently diagnosed with flu, and ap3 patient called EMS for shortness of breath. EMS reported patient to be 85% on room air at their arrival. Coronavirus screen: Client presents with at least one sign or symptom that may indicate coronavirus-19. Ebola Screen: No symptoms or risks identified at this time. Initial Sepsis Screen: Does the patient meet any 2 criteria? No. Patient's initial sepsis screen is negative. Does the patient have a suspected source of infection? No. Patient's initial sepsis screen is negative. Risk Assessment: Do you want to hurt yourself or someone else? Patient reports no desire to harm self or others. Onset of symptoms was September 02, 2024. 18:34 Method Of Arrival: EMS: [facility] ap3 18:34 Acuity: LAYLA 3 ap3 18:38 Care prior to arrival: Medication(s) given: Atrovent Neb Normal saline infusion, ap3 Tylenol, 975mg PO solumedrol 125mg IV initiated. 20 GA, in the right antecubital area. Triage Assessment: 18:37 General: Appears ill, Behavior is calm, cooperative, appropriate for age. Pain: ap3 Complains of pain in generalized body aches Pain began gradually. Neuro: Level of Consciousness is awake, alert, obeys commands, Oriented to person, place, time, situation, Appropriate for age. Cardiovascular: Patient's skin is warm and dry. Respiratory: Airway is patent Respiratory effort is even, labored, Respiratory pattern is regular, symmetrical. Historical: - Allergies: 18:37 No Known Allergies; ap3 - PMHx: 18:37 breast cancer; Chronic obstructive lung disease; ap3 - PSHx: 18:37 colon resection; Total abdominal hysterectomy; ap3 - Immunization history:: Client reports receiving the 2nd dose of the Covid vaccine, Flu vaccine is up to date. - Infectious Disease History:: Denies. - Social history:: Smoking status: Patient denies any tobacco usage or history of. - Family history:: not pertinent. - Hospitalizations: : No recent hospitalization is reported. Screenin:39 Abuse screen: Denies threats or abuse. Nutritional screening: No deficits noted. ap3 Tuberculosis screening: No symptoms or risk factors identified. 19:10 [facility] ED Fall Risk Assessment (Adult) History of falling in the last 3 months, rg5 including since admission No falls in past 3 months (0 pts) Confusion or Disorientation No (0 pts) Intoxicated or Sedated No (0 pts) Impaired Gait Yes (1 pt) Mobility Assist Device Used Yes (1 pt) Altered Elimination No (0 pt) Score/Fall Risk Level 0 - 2 = Low Risk Oriented to surroundings, Maintained a safe environment, Hourly rounding (assess needs \T\ fall precautionary measures) done. Assessment: 19:10 General: Appears in no apparent distress. Behavior is calm, cooperative. Pain: Denies rg5 pain. 19:10 Neuro: Level of Consciousness is awake, alert, obeys commands, Oriented to person, rg5 place, time. Cardiovascular: Patient's skin is warm and dry. Respiratory: Reports shortness of breath cough that is Breath sounds with wheezes. GI: Abdomen is round Abd is soft and non tender. : No signs and/or symptoms were reported regarding the genitourinary system. EENT: No deficits noted. Derm: Skin is intact, Skin is dry, Skin is normal, Skin temperature is warm. Musculoskeletal: Circulation, motion, and sensation intact. Range of motion: intact in all extremities. 20:00 Reassessment: Patient and/or family updated on plan of care and expected duration. Pain rg5 level reassessed. Patient is alert, oriented x 3, equal unlabored respirations, skin warm/dry/pink. 21:00 Reassessment: No changes from previously documented assessment. Patient and/or family rg5 updated on plan of care and expected duration. Pain level reassessed. Patient is alert, oriented x 3, equal unlabored respirations, skin warm/dry/pink. 22:22 Reassessment: No changes from previously documented assessment. Patient and/or family rg5 updated on plan of care and expected duration. Pain level reassessed. Patient is alert, oriented x 3, equal unlabored respirations, skin warm/dry/pink. Patient states symptoms have improved. 23:26 Reassessment: Patient and/or family updated on plan of care and expected duration. Pain rg5 level reassessed. Patient is alert, oriented x 3, equal unlabored respirations, skin warm/dry/pink. Vital Signs: 18:34 BP 105 / 57; Pulse 79; Resp 19; Temp 98.9(O); Pulse Ox 92% on R/A; Weight 64.86 kg; ap3 19:30 BP 120 / 47; Pulse 69; Resp 19; Pulse Ox 99% on 3 lpm NC; rg5 20:15 BP 115 / 57; Pulse 72; Resp 19; Pulse Ox 99% on 3 lpm NC; Pain 0/10; rg5 21:30 BP 119 / 56; Pulse 76; Resp 18; Pulse Ox 98% on 3 lpm NC; Pain 0/10; rg5 22:30 BP 100 / 51; Pulse 74; Resp 17; Pulse Ox 98% on 3 lpm NC; rg5 20:15 Pain Scale: Adult rg5 21:30 Pain Scale: Adult rg5 ED Course: 18:34 Patient arrived in ED. rv1 18:34 Reji Lobo MD is Attending Physician. rn 18:37 Triage completed. ap3 18:40 Arm band placed on right wrist. ap3 18:40 Patient has correct armband on for positive identification. Bed in low position. Call ap3 light in reach. Side rails up X2. Provided Education on: call light education. Client placed on continuous cardiac and pulse oximetry monitoring. NIBP monitoring applied. school lunch monitor on. Pulse ox on. NIBP on. 18:42 Monie Kelley, KARLA is Primary Nurse. ap3 18:57 Initial lab(s) drawn, by in, sent to lab. First set of blood cultures drawn. ap3 19:02 Inserted saline lock: 22 gauge in right antecubital area, using aseptic technique. ap3 Blood collected. Flushed with 10 mL NS. 19:11 Chest Single View XRAY In Process Unspecified. EDMS 19:13 Report given to receiving nurse. ap3 19:13 SARS-COV-2 Antigen Rapid Sent. ap3 19:13 Flu Sent. ap3 19:13 CBC with Diff Sent. ap3 19:13 CMP Sent. ap3 19:13 Lactate w/ 2H reflex if indic. Sent. ap3 19:13 Protime (+inr) Sent. ap3 19:13 Ptt, Activated Sent. ap3 19:41 Keaton aCmpos MD is Hospitalizing Provider. rn 21:46 No provider procedures requiring assistance completed. Patient admitted, IV remains in rg5 place. Administered Medications: 19:00 Drug: NS 0.9% IV 500 ml 500 ml IV at 1 bolus once; to be given as a bolus over 30 rg5 minutes Volume: 500 ml; Route: IV; Rate: 1 bolus; Site: right antecubital; 19:30 Follow up: IV Status: Completed infusion; IV Intake: 500ml rg5 19:10 Drug: Magnesium Sulfate IVPB 1 grams IVPB once over 1 hrs Route: IVPB; Infused Over: 1 rg5 hrs; Site: right antecubital; 20:15 Follow up: IV Status: Completed infusion; IV Intake: 100ml rg5 19:10 Drug: Levalbuterol Inhalation 1.25 mg Inhalation once Route: Inhalation; rg5 19:30 Drug: Levalbuterol Inhalation 1.25 mg Inhalation once Route: Inhalation; rg5 19:30 Drug: NS 0.9% IV 500 ml IV at bolus once; to be given as a bolus over 30 minutes Route: rg5 IV; Rate: bolus; Site: right antecubital; 21:03 Follow up: IV Status: Completed infusion; IV Intake: 500ml rg5 20:45 Drug: Rocephin IV 1 grams IV at calculated rate once; Given slow IV push per pharmacy rg5 instructions Route: IV; Rate: calculated rate; Site: right antecubital; 22:11 Follow up: IV Status: Completed infusion; IV Intake: 50ml rg5 20:50 Drug: Zithromax IVPB 500 mg IVPB once over 1 hrs; mix in 250 mL NS Route: IVPB; Infused rg5 Over: 1 hrs; Site: right antecubital; 22:11 Follow up: IV Status: Completed infusion; IV Intake: 250ml rg5 Medication: 18:40 VIS not applicable for this client. ap3 Intake: 19:30 IV: 500ml; Total: 500ml. rg5 20:15 IV: 100ml; Total: 600ml. rg5 21:03 IV: 500ml; Total: 1100ml. rg5 22:11 IV: 50ml; Total: 1150ml. rg5 22:11 IV: 250ml; Total: 1400ml. rg5 Outcome: 19:41 Decision to Hospitalize by Provider. rn 22:22 Admitted to Med/surg accompanied by tech, via stretcher, with oxygen, Report called to rg5 bebeto moctezuma 22:22 Condition: stable 22:22 Instructed on the need for admit, 5 23:26 Patient left the ED. 5 Signatures: Dispatcher [employer] EDReji Clemente MD MD rn Prokisch, Amanda RN RN [email or web address] Dionne Jimenez rv1 Nikita Harris, RN RN rg5
--- NOTE | 2024-09-03 19:41 | EDPHYS ---
Physician Documentation [facility] Name: Karrie Sky Age: 83 yrs Sex: Female : 1940 Arrival Date: 09/03/2024 Time: 18:31 Bed 20 Private MD: ED Physician Reji Lobo HPI: 09/03 19:37 This 83 yrs old Female presents to ER via EMS with complaints of Shortness Of Breath. rn 19:37 The patient has shortness of breath at rest, with light activity. Onset: The rn symptoms/episode began/occurred yesterday. Duration: The symptoms are continuous. The patient's shortness of breath is aggravated by coughing, light activity. Severity of symptoms: At their worst the symptoms were moderate in the emergency department the symptoms are unchanged. The patient has experienced similar episodes in the past. Patient reports increased shortness of breath over the last 2 days. Has been at home with flu. She has COPD and worsening breathing with increased oxygen requirement that began yesterday. Oxygen saturation was 85% for EMS. Given Solu-Medrol, Tylenol.. Historical: - Allergies: 18:37 No Known Allergies; ap3 - PMHx: 18:37 breast cancer; Chronic obstructive lung disease; ap3 - PSHx: 18:37 colon resection; Total abdominal hysterectomy; ap3 - Immunization history:: Client reports receiving the 2nd dose of the Covid vaccine, Flu vaccine is up to date. - Infectious Disease History:: Denies. - Social history:: Smoking status: Patient denies any tobacco usage or history of. - Family history:: not pertinent. - Hospitalizations: : No recent hospitalization is reported. ROS: 19:37 Constitutional: Positive for fever and chills Cardiovascular: Negative for chest pain, rn palpitations, and edema, Respiratory: Positive for cough and shortness of breath Abdomen/GI: Positive for nausea and diarrhea with decreased appetite MS/Extremity: Negative for injury and deformity, Neuro: Positive for generalized weakness and malaise Exam: 19:37 Constitutional: This is a well developed, well nourished patient who is awake, alert, rn mild to moderate tachypnea Cardiovascular: Regular rate and rhythm. No pulse deficits. Respiratory: Mild to moderate tachypnea, diffuse wheezing, no retractions Abdomen/GI: Soft, nontender MS/ Extremity: Pulses equal, no cyanosis. Neurovascular intact. Full, normal range of motion. Equal circumference. Neuro: Awake and alert, GCS 15 Vital Signs: 18:34 BP 105 / 57; Pulse 79; Resp 19; Temp 98.9(O); Pulse Ox 92% on R/A; Weight 64.86 kg; ap3 19:30 BP 120 / 47; Pulse 69; Resp 19; Pulse Ox 99% on 3 lpm NC; rg5 20:15 BP 115 / 57; Pulse 72; Resp 19; Pulse Ox 99% on 3 lpm NC; Pain 0/10; rg5 21:30 BP 119 / 56; Pulse 76; Resp 18; Pulse Ox 98% on 3 lpm NC; Pain 0/10; rg5 22:30 BP 100 / 51; Pulse 74; Resp 17; Pulse Ox 98% on 3 lpm NC; rg5 20:15 Pain Scale: Adult rg5 21:30 Pain Scale: Adult rg5 MDM: 18:34 Medical Screening Exam initiated rn 19:37 Differential diagnosis: Chronic Obstructive Pulmonary Disease Myocardial Infarction rn pneumonia, Pneumothorax pulmonary edema. Data reviewed: vital signs, nurses notes, lab test result(s), radiologic studies, plain films, and as a result, I will admit patient. Consideration of Admission/Observation Patient was admitted/placed on observation. Escalation of care including admission/observation considered. Management of patient was discussed with the following: Primary Care Provider: Discussed case with Dr. Campos, will admit for COPD exacerbation. We are assuming this is flu because confirmed flu at home.. Counseling: I had a detailed discussion with the patient and/or guardian regarding the historical points, exam findings, and any diagnostic results supporting the discharge/admit diagnosis, lab results, radiology results, the need for further work-up and treatment in the hospital. Response to treatment: the patient's symptoms have mildly improved after treatment. 19:40 ED course: I personally spent 35 minutes engaged in work directly related to the rn individual patient's care. This does not include any time spent performing procedures. The patient has been deemed critically ill because of moderate to severe COPD exacerbation requiring increased oxygen, fluid resuscitation and organization of admission to hospital. 09/03 18:35 Order name: Blood Culture Adult (2) rn 09/03 18:35 Order name: CBC with Diff; Complete Time: 19:36 rn 09/03 18:35 Order name: CMP; Complete Time: 19:36 rn 09/03 18:35 Order name: Lactate w/ 2H reflex if indic.; Complete Time: 19:36 rn 09/03 18:35 Order name: Protime (+inr); Complete Time: 19:36 rn 09/03 18:35 Order name: Ptt, Activated; Complete Time: 19:36 rn 09/03 18:35 Order name: Flu; Complete Time: 19:36 rn 09/03 18:35 Order name: SARS-COV-2 Antigen Rapid; Complete Time: 19:36 rn 09/03 18:35 Order name: Chest Single View XRAY; Complete Time: 19:57 rn 09/03 18:35 Order name: Accucheck; Complete Time: 19:58 rn 09/03 18:35 Order name: Cardiac monitoring; Complete Time: 18:41 rn 09/03 18:35 Order name: EKG - Nurse/Tech; Complete Time: 21:03 rn 09/03 18:35 Order name: IV Saline Lock - Large Bore; Complete Time: 19:02 rn 09/03 18:35 Order name: Labs collected and sent; Complete Time: 19:02 rn 09/03 18:35 Order name: O2 Per Protocol; Complete Time: 18:41 rn 09/03 18:35 Order name: O2 Sat Monitoring; Complete Time: 18:41 rn 09/03 18:35 Order name: Vital Signs; Complete Time: 18:41 rn Administered Medications: 19:00 Drug: NS 0.9% IV 500 ml 500 ml IV at 1 bolus once; to be given as a bolus over 30 rg5 minutes Volume: 500 ml; Route: IV; Rate: 1 bolus; Site: right antecubital; 19:30 Follow up: IV Status: Completed infusion; IV Intake: 500ml rg5 19:10 Drug: Magnesium Sulfate IVPB 1 grams IVPB once over 1 hrs Route: IVPB; Infused Over: 1 rg5 hrs; Site: right antecubital; 20:15 Follow up: IV Status: Completed infusion; IV Intake: 100ml rg5 19:10 Drug: Levalbuterol Inhalation 1.25 mg Inhalation once Route: Inhalation; rg5 19:30 Drug: Levalbuterol Inhalation 1.25 mg Inhalation once Route: Inhalation; rg5 19:30 Drug: NS 0.9% IV 500 ml IV at bolus once; to be given as a bolus over 30 minutes Route: rg5 IV; Rate: bolus; Site: right antecubital; 21:03 Follow up: IV Status: Completed infusion; IV Intake: 500ml rg5 20:45 Drug: Rocephin IV 1 grams IV at calculated rate once; Given slow IV push per pharmacy rg5 instructions Route: IV; Rate: calculated rate; Site: right antecubital; 22:11 Follow up: IV Status: Completed infusion; IV Intake: 50ml rg5 20:50 Drug: Zithromax IVPB 500 mg IVPB once over 1 hrs; mix in 250 mL NS Route: IVPB; Infused rg5 Over: 1 hrs; Site: right antecubital; 22:11 Follow up: IV Status: Completed infusion; IV Intake: 250ml rg5 Disposition: 19:40 Critical Care:. 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 Total time: 35 minutes rn Signatures: Dispatcher [employer] EDReji Clemente MD MD rn Prokisch, Amanda RN RN Dionne Ritter rv1 Nikita Harris RN RN rg5 Corrections: (The following items were deleted from the chart) 18:36 18:36 BLOOD CULTURE*+BA.LAB.BRZ ordered. EDMS EDMS 18:36 18:36 CBC+H.LAB.BRZ ordered. EDMS EDMS 18:36 18:36 COMPREHENSIVE METABOLIC PANEL+C.LAB.BRZ ordered. EDMS EDMS 18:36 18:36 LACTATE+C.LAB.BRZ ordered. EDMS EDMS 18:36 18:36 PROTIME (+INR)+COAG.LAB.BRZ ordered. EDMS EDMS 18:36 18:36 PTT, ACTIVATED+COAG.LAB.BRZ ordered. EDMS EDMS 18:36 18:36 Influenza Screen (A \T\ B)+BA.LAB.BRZ ordered. EDMS EDMS 18:36 18:36 SARS-COV-2 Antigen Rapid+I.LAB.BRZ ordered. EDMS EDMS 18:36 18:36 Chest Single View+RAD.RAD.BRZ ordered. EDMS EDMS 20:20 19:41 Telemetry/MedSurg (Inpatient) rn rv1 20:20 19:41 rn rv1 21:32 20:20 [facility] ER HOLD rv1 rv1 21:32 20:20 ERHOLD- rv1 rv1
[2024-09-03] MEDS ORDERED: LEVALBUTEROL 1.25 MG/3 ML NEB ONE (19:44)
[2024-09-03] MEDS ORDERED: MAGNESIUM SULFATE 1 gm IVPB 1 GM/100 ML BAG IV ONE (19:44)
[2024-09-03] MEDS ORDERED: NA CHLORIDE 0.9% 500 ML ONE (19:44)
--- NOTE | 2024-09-03 19:55 | RAD REPORT ---
Procedure: Chest Single View HISTORY: Shortness of breath COMPARISON: June 2024 FINDINGS: Calcified nodule right upper lobe unchanged. Mild medial left upper lobe opacity appears unchanged Post surgical changes right lung. No significant pleural effusion. Heart is normal size
[2024-09-03] MEDS ORDERED: CEFTRIAXONE 1000 MG/VIAL ONE (20:49)
[2024-09-03] MEDS ORDERED: AZITHROMYCIN 500 MG INJ IVPB ONE (20:50)
[2024-09-03] MEDS ORDERED: NA CHLORIDE 0.9% 250 ML ONE (20:50)
[2024-09-03] MEDS ORDERED: IPRATROPIUM BROM 0.5MG/2.5ML NEB PRN (23:34)
[2024-09-03] MEDS ORDERED: ALBUTEROL 2.5 MG/3 ML NEB SOL NEB PRN (23:34)
[2024-09-03 23:44] VITALS: BMI 24.3
[2024-09-04] MEDS: GABAPENTIN 400 MG CAP PO SCH (00:29)
[2024-09-04] MEDS: METHYLPREDNISOLONE 40 MG INJ IV SCH (00:30)
[2024-09-04] MEDS: TRAZODONE 50 MG TABLET PO SCH (00:30)
[2024-09-04 04:51] LABS: Absolute Lymphocytes (CBC) 0.4 K/uL (0.7-4.9); Absolute Monocytes 0.1 K/uL (0.1-1.3); Absolute Neutrophil 3.7 K/uL (1.8-8.0); Basophils % 0.7 % (0-1.3); Hematocrit 35.7 % (36.0-45.0); Hemoglobin 11.9 g/dL (12.0-15.0); Lymphocytes % 9.2 % (15.3-44.8); MCH 31.7 pg (27.0-35.0); MCHC 33.3 g/dL (32.0-36.0); MCV 95.4 fL (80-100); MPV 9.4 fL (7.6-11.3); Monocytes % 2.1 % (3.3-12.3); Platelets 209 thou/uL (152-406); RBC Red Blood Cell Count 3.74 M/uL (3.86-4.86); Red Cell Distribution Width 13.4 % (12.1-15.2)
[2024-09-04 05:39] LABS: Band Neutrophils 2 % (0-1); Blood Morphology Comment NOT SEEN (NOT SEEN); Differential Total Cells Count 100; Lymphocytes 6 % (15-42); Monocytes 3 % (0-10); Platelet Estimate ADEQ; Segmented Neutrophils 88 % (40-80)
[2024-09-04] MEDS: ALBUTEROL 2.5 MG/3 ML NEB SOL NEB SCH (08:33)
[2024-09-04] MEDS: IPRATROPIUM BROM 0.5MG/2.5ML NEB SCH (08:34)
[2024-09-04] MEDS: **PT MED**Budesonide/Glycopyr/Formoterol [Breztri Aerosphere Inhaler] 10.7 GM Hfa IH SCH (09:00)
[2024-09-04] MEDS: METOPROLOL TAR 50 MG TAB PO SCH (09:30)
[2024-09-04] MEDS: ENOXAPARIN 40 MG/0.4 ML SQ SCH (09:31)
[2024-09-04] MEDS: CEFTRIAXONE 1,000 MG in NA CHLORIDE 0.9% 50 ML IVPB SCH (09:31)
[2024-09-04] MEDS: AMLODIPINE 5 MG TAB PO SCH (09:31)
[2024-09-04] MEDS: AZITHROMYCIN IV 250 MG in NA CHLORIDE 0.9% 250 ML IVPB SCH (09:32)
[2024-09-04] MEDS: SERTRALINE HCL 50 MG TAB PO SCH (09:32)
[2024-09-04] MEDS: NA CHLORIDE 0.9% 1,000 ML IV SCH (11:58)
[2024-09-05] MEDS: LEVOTHYROXINE SOD 0.05 MG TABLET PO SCH (05:54)
--- NOTE | 2024-09-05 05:59 | HP ---
Date of Admission: 09/04/2024 Chief Complaint: Cough, congestion, shortness of breath. History Of Present Illness: This is an 83-year-old very pleasant female patient who has COPD, takes her medications regularly as prescribed, came into emergency room with a few-day history of worsening problem with cough, chest congestion, coughing up some colored mucus and associated shortness of breath and wheezing. After the patient was evaluated in the ER, she was admitted to the hospital with acute exacerbation of COPD. The patient denies any vomiting or diarrhea. Medications: List reviewed. Review of Systems: Respiratory: As mentioned above. Constitutional: Generalized weakness. All other systems reviewed and negative. Allergies: NO KNOWN ALLERGIES. Past Medical History: Significant for COPD, left breast cancer, pulmonary nodules, hypertension, hyperlipidemia, colon cancer, osteoarthritis at multiple sites, osteopenia, vitamin D deficiency. Past Surgical History: Cataract surgery, partial pneumonectomy in 2008 and it was not due to cancer, partial resection of colon in 2004 due to colon cancer, and hysterectomy. Family History: Parents , details unknown. Social History: Negative for smoking and alcohol use. Physical Examination: Vital Signs: This morning, temperature 97.5, pulse 68, respiratory rate 18, blood pressure 124/58, oxygen saturation 97% on 3 L nasal cannula oxygen. Height 5 feet 4 inches, weight 141 pounds. General: The patient is awake, alert, oriented, not in distress, appears weaker than normal, and appears very tired. HEENT: Head atraumatic, normocephalic. Conjunctivae nonerythematous. Sclerae white. Mouth, no thrush or edema noted. Ears/Nose, no mass, lesion, discharge noted. Neck: Supple. No JVD, lymph nodes, bruit, thyromegaly noted. Lungs: Bilateral good equal air entry with presence of wheezing, scattered in both lung lind with some basal crackles. Not using accessory muscles of respiration. Heart: Normal heart sounds, no murmur or gallop. Abdomen: Soft, bowel sounds normal. No guarding, rigidity, tenderness, mass, hepatosplenomegaly, distention, or bruit noted. Extremities: No leg edema. No calf tenderness. Skin: No rash, ulcer, cellulitis. Lymphatics: No lymph node enlargement in neck, supraclavicular, infraclavicular region. Neuro: No focal neurological deficit. Chest: Unremarkable. External Genitalia: Deferred. Rectal: Deferred. Laboratory Data: Yesterday, white count 7.6, hemoglobin 13.4, platelets 257. This morning, white count 4.2, hemoglobin 11.9, platelets 209. For chemistry yesterday, sodium 138, potassium 4.1, chloride 106, bicarb 28, BUN 10, creatinine 0.93, and glucose 117. Lactic acid 0.9. Liver function tests unremarkable. Today, sodium 138, potassium 4, chloride 107, bicarb 29, BUN 13, creatinine 0.77, glucose 174. Chest x-ray shows calcified right upper lobe nodule unchanged and mild medial left upper lobe opacity appears unchanged, postsurgical changes in right lung, no significant pleural effusion, heart size normal. Impression: 1. Acute exacerbation of chronic obstructive pulmonary disease. 2. Hypertension. 3. Hyperlipidemia. 4. Osteoarthritis, multiple sites. 5. Pulmonary nodule. 6. Left breast cancer. 7. Colon cancer. 8. Osteopenia. 9. Vitamin D deficiency. Plan: Admit the patient to hospital for further evaluation and management of this problem. The patient is appropriate for inpatient and is expected to spend 2 midnights in hospital. For COPD exacerbation, we will go ahead and treat her with antibiotic per order and IV steroid and nebulizer treatment per order. We will monitor her, reevaluate her tomorrow. DVT prophylaxis will be given per order. For her hypertension, we will continue antihypertensive medication per order, monitor blood pressure if necessary, adjust medication, otherwise no need for further intervention. For hyperlipidemia, continue her medications per order, no need for further intervention. Her other home medications will be continued as per order. Physical Therapy was consulted to assist the patient with ambulation. I will see her tomorrow morning. Total time spent 80 minutes, including communication with the emergency room provider, review of emergency room visit record, review of last hospital admission record from 01/04/2023, review of last office visit record, and performing today's evaluation and management. SHIRLENE/ANIL Voice ID: [id number] NATHANAEL
[2024-09-05] MEDS: ALPRAZOLAM 0.5 MG TABLET PO PRN (07:41)
--- NOTE | 2024-09-05 11:30 | EKG ---
Test Date: 2024-09-03 Test Time: 20:23:36 Lmft: ALANIS MEASUREMENT RESULTS: Intervals: Rate: 75 DE: 158 QRSD: 78 QT: 386 QTc: 431 Sturgeon: P: 113 DE: 158 QRS: 33 T: 76 INTERPRETIVE STATEMENTS: Sinus rhythm with premature atrial complexes Septal infarct, age undetermined Abnormal ECG Compared to ECG 07/18/2024 11:27:11 Atrial premature complex(es) now present Myocardial infarct finding now present Sinus bradycardia no longer present Electronically Signed On 09-05-24 11:28:01 SCIENCE WRITER by Lasha Schwarz
[2024-09-05] MEDS: ONDANSETRON 4 MG/2 ML VIAL IV PRN (15:06)
--- NOTE | 2024-09-05 22:49 | PN ---
Date of Progress Note: 09/05/2024 Subjective: The patient was seen this morning for followup. She was sleeping, not in any distress. No new complaints or problems reported by her. Objective: Vital Signs: Reviewed. HEENT: Unremarkable. Lungs: Bilateral good equal air entry. Presence of scattered wheezing in lower lung lind, better today than yesterday. Not using accessory muscles of respiration. Heart: Sounds normal. Abdomen: Soft. Bowel sounds normal. No guarding, rigidity, tenderness, distention. Extremities: No leg edema. Impression: 1.Acute exacerbation of chronic obstructive pulmonary disease. 2.Hypertension. 3.Hyperlipidemia. Plan: We will go ahead and continue oxygen nebulizer treatment, steroid, and antibiotic. Physical T herapy to work with the patient. Continue other current medical management. Continue current DVT pr ophylaxis. I will see her tomorrow for followup. Plan of treatment discussed with her. SHIRLENE/MODL Voice ID: [id number] Report ID: [id number]
[2024-09-06 04:55] LABS: Absolute Lymphocytes (CBC) 0.4 K/uL (0.7-4.9); Absolute Monocytes 0.3 K/uL (0.1-1.3); Absolute Neutrophil 5.1 K/uL (1.8-8.0); Basophils % 0.2 % (0-1.3); Hematocrit 35.9 % (36.0-45.0); Hemoglobin 11.5 g/dL (12.0-15.0); Lymphocytes % 6.3 % (15.3-44.8); MCH 30.9 pg (27.0-35.0); MCV 96.5 fL (80-100); MPV 9.4 fL (7.6-11.3); Monocytes % 4.6 % (3.3-12.3); Platelets 196 thou/uL (152-406); RBC Red Blood Cell Count 3.72 M/uL (3.86-4.86); Red Cell Distribution Width 13.9 % (12.1-15.2)
[2024-09-06 04:56] LABS: Neutrophils % 88.9 % (41.7-73.7)
[2024-09-06 05:09] LABS: Anion Gap 4.4 mEq/L (5.0-15.0); Magnesium 2.4 mg/dL (1.6-2.4); Potassium 4.4 mEq/L (3.5-5.1)
[2024-09-06] MEDS: ACETAMINOPHEN 500 MG TAB PO PRN (09:51)
--- NOTE | 2024-09-06 17:17 | PN ---
Date of Progress Note: 09/06/2024 Subjective: The patient was seen this morning for followup. No new complaints or problems reported. Yesterday morning, she had a rough time with shortness of breath and anxiety, but she responded wel l to alprazolam. She remains on oxygen 2 L/minute, gets nebulizer treatment, IV steroid, and antibio tic and she says rest of the day she felt better. This morning, for the first time she reports feeli ng better as far as her breathing is concerned. She still has some cough, chest congestion, wheezing at times, but overall feels better today than last few days. Objective: Vital Signs: Reviewed. HEENT: Unremarkable. Lungs: Bilateral good equal air entry. No rales. Minimal wheezing noted in lower lung field. Over all much better than before. Not using accessory muscles of respiration. Heart: Sounds normal. Abdomen: Soft. Bowel sounds normal. No guarding, rigidity, tenderness, distention. Extremities: No leg edema. Laboratory Data: White count 5.7, hemoglobin 11.5, platelets 196. Sodium 143, potassium 4.4, chlori de 110, bicarb 33, BUN 15, creatinine 0.59, glucose 124. Impression: 1.Acute exacerbation of chronic obstructive pulmonary disease. 2.Hypertension. 3.Hyperlipidemia. Plan: We will go ahead and have Physical Therapy continue to work with the patient. The patient rep orts that yesterday she did ambulate with the therapy. We will continue her oxygen nebulizer treatme nt per order. She is on IV steroid, which we will discontinue now and start her on oral prednisone 2 0 mg 2 times a day. Continue current antibiotics. Continue current DVT prophylaxis. I informed her that there is a good possibility she will be able to go home sometime over the weekend and that can happen either tomorrow or day after tomorrow depending on her condition, and I will be out of town as of today, and hospitalist will take over this patient's care in my absence until I examine that day after tomorrow, and we will see for day after tomorrow if she is still in the hospital, but otherwise if she is stable to go home tomorrow, hospitalist will release her tomorrow. I have instructed her to come see me at office for followup sometime next week on . SHIRLENE/MODL Voice ID: [id number] Report ID: [id number]
[2024-09-06] MEDS: predniSONE 20 MG TAB PO SCH (20:29)
[2024-09-07 09:13] VITALS: O2SAT 99
--- NOTE | 2024-09-07 11:17 | P.PN ---
Date of Service: 09/07/24 Subjective: continues with cough but doesn't feel worse reports some discomfort from coughing fits slowly improving with PT reports decreased urinary output recently and dark urine on admission but has been clearing up and more yellow now feels like she might be dehydrated afebrile ROS: 10 point ROS as noted above, otherwise negative Physical Exam: GEN: Alert, oriented, NAD CV: Regular rate and rhythm, no edema Pulm: Nonlabored respirations on 2L NC; +cough, minimal wheeze ABD: soft, nontender, nondistended Neuro: Normal speech, normal affect Problem List: Acute hypoxic respiratory failure secondary to acute on chronic COPD exacerbation Hypertension Hyperlipidemia Hypothyroidism Hx colon/left breast cancer Hx osteoarthritis / osteopenia Acute hypoxic respiratory failure secondary to acute on chronic COPD e xacerbation on admission, presents with worsening shortness of breath at rest, worsening with light activity. Desatting to 85% on room air prior to admission Reports recently diagnosed with flu; Flu test negative on admission. IV steroids deescalated to PO prednisone 09/06 continue home meds, duonebs continue empiric rocephin / azithromycin (09/04-) to cover possible infection afebrile, no leukocytosis fall precautions continue PT reports some msk pains/discomfort from coughing fits; khalida mcqueen added 09/07 respiratory status improving wean oxygen as tolerated monitor UOP, may need gentle IVF Hypertension Hyperlipidemia Hypothyroidism Hx colon/left breast cancer Hx osteoarthritis / osteopenia continue home meds, supportive care VTE: Lovenox Code: Full Dispo: Home, ? Time Spent Managing Pts Care (In Minutes): 55
[2024-09-07] MEDS: BENZONATATE 100 MG CAP PO PRN (14:02)
[2024-09-08 06:33] LABS: Anion Gap 2.2 mEq/L (5.0-15.0); Magnesium 2.5 mg/dL (1.6-2.4); Potassium 4.2 mEq/L (3.5-5.1)
--- NOTE | 2024-09-08 12:10 | DS ---
Date of Discharge: 09/08/2024 History Of Present Illness: The patient was seen this morning for followup. No new complaints or pr oblems reported. The patient was requesting to go home today when I saw her. Overall, her condition has improved since she was admitted to the hospital. She remains on oxygen 2 to 3 L/minute nasal ca nnula and she has her oxygen at home that she usually uses all the time. She also has a walker and s he lives at home with her and daughter. Physical Examination: HEENT: Unremarkable. Lungs: Clear to auscultation. No wheezing. No rales. Heart: Sounds normal. Abdomen: Soft. Bowel sounds normal. No guarding, rigidity, tenderness, or distention. Extremities: No leg edema. Discharge Medications And Instructions: Continue all prior home medications. 1.Take cefuroxime 250 mg 2 times a day for 5 days, take it with food. 2.Prednisone 10 mg, take 3 tablets daily for 3 days, then 2 tablets daily for 3 days, then 1 tablet daily for 3 days, and then stop, take with food. 3.Follow up at my office next week on 09/12/2024. Hospital Course: This is an 83-year-old pleasant female patient, admitted to the hospital with cough , congestion, and shortness of breath. Please see dictated H and P for more information. After oliverio ent was evaluated in the emergency room, she was admitted to the hospital with acute exacerbation of COPD problem. Her initial blood work showed WBC 7.6, hemoglobin 13.4, platelets 257. Sodium 138, po tassium 4.1, chloride 106 bicarb 28, BUN 10, creatinine 0.93, glucose 117, lactic acid 0.9. Liver fu nction tests unremarkable. Chest x-ray showed calcified right upper lobe nodule unchanged and mild m edial left upper lobe opacity appears unchanged. Postsurgical changes in right lung. No significant pleural effusion. Heart size normal. After the patient was evaluated in the emergency room, she wa s admitted to the hospital and she was treated with IV steroid, IV antibiotic, oxygen and nebulizer t reatment. Overall, her condition has improved. She is ambulating with a walker at home. She does h ave a walker and her daughter lives with her. She was encouraged to walk at home inside her house fe w times a day using her walker and use her oxygen all the time at 2 to 3 L/minute nasal cannula. Soc ial Service was consulted to make arrangements for home health care and home physical therapy and jesus cole, I witnessed her in the room, getting up from bed and walking in the room with her walker independ ently. The patient was discharged to go home in stable and improved condition with above-mentioned m edications and instructions. Final Diagnoses: 1.Acute exacerbation of chronic obstructive lung disease. 2.Hypertension. 3.Hyperlipidemia. 4.Osteoarthritis at multiple sites. 5.Pulmonary nodule. 6.Left breast cancer. 7.Colon cancer. 8.Osteopenia. 9.Vitamin D deficiency. Total time spent today, 35 minutes. SHIRLENE/MODL Voice ID: [id number] Report ID: [id number]
[2024-09-08 16:55] VITALS: BP 147/61; TEMP 97.2
== END 2024-09-08 12:05 | disposition home or self-care (01) | DRG 190 ==
LOC: ER 18:31 → ERHOLD 19:43 → 2ND 22:17
PROVIDERS: ADMIT Internal Medicine; ATTEND Internal Medicine
DX: J44.1 Chronic obstructive pulmonary disease with (acute) exacerbation (principal); J96.01 Acute respiratory failure with hypoxia; I10 Essential (primary) hypertension; E03.9 Hypothyroidism, unspecified; M15.9 Polyosteoarthritis, unspecified; M85.80 Other specified disorders of bone density and structure, unspecified site; Z11.52 Encounter for screening for COVID-19; Z85.3 Personal history of malignant neoplasm of breast; Z85.038 Personal history of other malignant neoplasm of large intestine
CPT/HCPCS: 36415; 71045; 80048; 80053; 83605; 83735; 85025; 85610; 85730; 87040; 87804; 87811; 93005; 94760; 96361; 96365; 96366; 96367; 96368; 97116; 97161; 97530; 99285; J0696; J1650; J2405; J2919; J3475; J7030; J7040; J7050; J7512; J7613; J7614; J7644

== ENCOUNTER 2024-09-09 14:34 | Inpatient (IN) | payer OTHER ==
[2024-09-09] MEDS ORDERED: MAGNESIUM SULFATE 1 gm IVPB 1 GM/100 ML BAG IV ONE (14:49)
[2024-09-09 15:17] LABS: Absolute Eosinophils 0.1 K/uL (0-0.5); Absolute Lymphocytes (CBC) 0.8 K/uL (0.7-4.9); Absolute Monocytes 0.6 K/uL (0.1-1.3); Absolute Neutrophil 4.7 K/uL (1.8-8.0); Basophils % 0.3 % (0-1.3); Eosinophils % 0.9 % (0-4.4); Hematocrit 44.5 % (36.0-45.0); Hemoglobin 14.8 g/dL (12.0-15.0); Lymphocytes % 12.6 % (15.3-44.8); MCH 31.2 pg (27.0-35.0); MCHC 33.3 g/dL (32.0-36.0); MCV 93.7 fL (80-100); MPV 8.8 fL (7.6-11.3); Monocytes % 9.7 % (3.3-12.3); Neutrophils % 76.5 % (41.7-73.7); Nucleated Red Blood Cells % 0.2 % (0-0); Platelets 211 thou/uL (152-406); RBC Red Blood Cell Count 4.75 M/uL (3.86-4.86); Red Cell Distribution Width 13.3 % (12.1-15.2)
--- NOTE | 2024-09-09 15:30 | RAD REPORT ---
Procedure: Chest Single View HISTORY: Shortness of breath COMPARISON: September 03, 2024 FINDINGS: Calcified nodule right upper lobe unchanged. Mild medial left upper lobe opacity appears unchanged Post surgical changes right lung. No significant pleural effusion. Heart is normal size IMPRESSION: No acute abnormality is displayed.
[2024-09-09 15:34] LABS: Anion Gap 3.4 mEq/L (5.0-15.0); Magnesium 2.4 mg/dL (1.6-2.4); Potassium 3.4 mEq/L (3.5-5.1)
[2024-09-09 15:38] LABS: SARS-CoV-2 Antigen CONTROL BLUE LINE VIS/BG OK; SARS-CoV-2 Antigen Rapid Res Negative (Negative)
[2024-09-09] MEDS ORDERED: LEVALBUTEROL 1.25 MG/3 ML NEB ONE (15:51)
[2024-09-09 17:17] LABS: Blood O2 Saturation 97.4 % (92-98.5)
[2024-09-09 17:18] LABS: Arterial Blood Carboxyhemoglob 0.8 % (0-1.5); Blood Gas THB 14.3 g/dl (12-18)
--- NOTE | 2024-09-09 17:18 | EDPHYS ---
Physician Documentation [facility] Name: Karrie Sky Age: 83 yrs Sex: Female : 1940 Arrival Date: 09/09/2024 Time: 14:34 Bed 4 Private MD: ED Physician Carlin Fountain HPI: 09/09 14:45 This 83 yrs old Female presents to ER via EMS with complaints of Shortness Of Breath. sb4 14:45 patient with history of COPD on home O2, admitted for a few days discharged yesterday sb4 for COPD exacerbation. states she was feeling okay upon discharge but late last night started feeling very short of breath again. Historical: - Allergies: 14:41 No Known Allergies; ko1 - PMHx: 14:41 breast cancer; Chronic obstructive lung disease; ko1 - PSHx: 14:41 colon resection; Total abdominal hysterectomy; ko1 - Immunization history:: Adult Immunizations unknown. - Infectious Disease History:: Denies. - Social history:: Smoking status: Patient/guardian denies using tobacco, but has a distant history of tobacco abuse. ROS: 14:45 Constitutional: Negative for fever, chills, and weight loss, sb4 14:45 Respiratory: Positive for shortness of breath, 14:45 All other systems are negative, Exam: 14:45 Head/Face: Normocephalic, atraumatic. Eyes: Extra-ocular motions intact. Periorbital sb4 areas with no swelling, redness, or edema. ENT: Mucous membranes moist. Cardiovascular: Regular rate and rhythm with a normal S1 and S2. Abdomen/GI: Soft, non-tender, no distension. Skin: Warm, dry with normal turgor. Normal color with no rashes, no lesions, and no evidence of cellulitis. 14:45 Constitutional: The patient appears alert, awake, in obvious distress, mildly distressed, 14:45 Respiratory: mild respiratory distress is noted, Respirations: labored breathing, that is mild, Breath sounds: wheezing: expiratory is heard diffusely, Vital Signs: 14:37 BP 157 / 91; Pulse 82; Resp 18; Temp 98.8; Pulse Ox 99% on 2 lpm NC; ko1 15:16 BP 151 / 74; Pulse 67; Resp 19; Pulse Ox 95% on 3 lpm NC; ko1 16:02 BP 156 / 71; Pulse 65; Pulse Ox 100% ; ap3 17:46 BP 138 / 72; Pulse 68; Resp 18; Pulse Ox 95% on 3 lpm NC; ko1 MDM: 14:39 Medical Screening Exam initiated sb4 17:15 Antibiotic administration: cefuroxime. Data reviewed: vital signs, nurses notes, EMS sb4 record, lab test result(s), radiologic studies, and as a result, I will admit patient. Consideration of Admission/Observation Patient was admitted/placed on observation. Management of patient was discussed with the following: Primary Care Provider: Dr. Campos, accepts patient for admission. Counseling: I had a detailed discussion with the patient and/or guardian regarding the historical points, exam findings, and any diagnostic results supporting the discharge/admit diagnosis, the presence of at least one elevated blood pressure reading (>120/80) during this emergency department visit, lab results, radiology results, the need for further work-up and treatment in the hospital. 09/09 14:44 Order name: BMP; Complete Time: 15:34 sb4 09/09 14:44 Order name: CBC with Diff; Complete Time: 15:19 sb4 09/09 14:44 Order name: Magnesium; Complete Time: 15:34 sb4 09/09 14:44 Order name: NT PRO-BNP; Complete Time: 15:34 sb4 09/09 14:44 Order name: SARS RAPID; Complete Time: 15:39 sb4 09/09 14:44 Order name: Flu; Complete Time: 15:43 sb4 09/09 14:44 Order name: RSV; Complete Time: 15:43 sb4 09/09 15:45 Order name: ABG; Complete Time: 17:22 sb4 09/09 14:44 Order name: XRAY CXR (1 view); Complete Time: 15:34 sb4 09/09 14:44 Order name: Cardiac monitoring; Complete Time: 14:47 sb4 09/09 14:44 Order name: IV Saline Lock; Complete Time: 14:47 sb4 09/09 14:44 Order name: Labs collected and sent; Complete Time: 15:02 sb4 09/09 14:44 Order name: O2 Per Protocol; Complete Time: 14:47 sb4 09/09 14:44 Order name: O2 Sat Monitoring; Complete Time: 14:47 sb4 Administered Medications: 15:02 Drug: Magnesium Sulfate IVPB 1 grams IVPB once over 1 hrs Route: IVPB; Infused Over: 1 ko1 hrs; Site: right antecubital; 16:00 Follow up: Response: No adverse reaction; IV Status: Completed infusion; IV Intake: ko1 100ml 15:53 Drug: Levalbuterol Inhalation 1.25 mg Inhalation once Route: Inhalation; ko1 17:26 Drug: acetaZOLAMIDE PO 250 mg PO once Route: PO; ko1 17:57 Follow up: Response: No adverse reaction ko1 Disposition Summary: 09/09/24 17:17 Hospitalization Ordered Notes: Hospitalization Status: Inpatient Admission sb4 Provider: Keaton Campos sb4 Location: Telemetry/MedSurg (Inpatient) sb4 Condition: Fair sb4 Problem: new sb4 Symptoms: are unchanged sb4 Bed/Room Type: Standard sb4 Room Assignment: 406(09/09/24 17:31) bc6 Diagnosis - COPD/ Chronic obstructive pulmonary disease with (acute) exacerbation sb4 - Acute and chronic respiratory failure with hypercapnia sb4 - Acute and chronic respiratory failure with hypoxia sb4 Forms: - Medication Reconciliation Form sb4 - SBAR form sb4 - Leadership Thank You Letter sb4 Signatures: Dispatcher [employer] EDCatalina Crenshaw RN RN ko1 Angela Bundy PA-C PA-C sb4 Elana Souza bc6 Corrections: (The following items were deleted from the chart) 14:44 14:44 BASIC METABOLIC PANEL+C.LAB.BRZ ordered. EDMS EDMS 14:44 14:44 CBC+H.LAB.BRZ ordered. EDMS EDMS 14:44 14:44 MAGNESIUM+C.LAB.BRZ ordered. EDMS EDMS 14:44 14:44 PROBNP+C.LAB.BRZ ordered. EDMS EDMS 14:44 14:44 SARS-COV-2 Antigen Rapid+I.LAB.BRZ ordered. EDMS EDMS 14:44 14:44 Influenza Screen (A \T\ B)+BA.LAB.BRZ ordered. EDMS EDMS 14:44 14:44 Respiratory Syncytial Virus Ag+BA.LAB.BRZ ordered. EDMS EDMS 14:45 14:45 Chest Single View+RAD.RAD.BRZ ordered. EDMS EDMS 15:46 15:46 Arterial Blood Gas+RC.LAB.BRZ ordered. EDMS EDMS 17:31 17:17 sb4 bc6
--- NOTE | 2024-09-09 17:18 | ER ---
Nurse's Notes [facility] Name: Karrie Sky Age: 83 yrs Sex: Female : 1940 Arrival Date: 09/09/2024 Time: 14:34 Bed 4 Private MD: Diagnosis: COPD/ Chronic obstructive pulmonary disease with (acute) exacerbation;Acute and chronic respiratory failure with hypercapnia;Acute and chronic respiratory failure with hypoxia Presentation: 09/09 14:37 Chief complaint: EMS states: patient called for shortness of breath, was discharged ko1 yesterday negative for flu and covid but has the flu. Coronavirus screen: At this time, the client does not indicate any symptoms associated with coronavirus-19. Ebola Screen: No symptoms or risks identified at this time. Initial Sepsis Screen: Does the patient meet any 2 criteria? No. Patient's initial sepsis screen is negative. Does the patient have a suspected source of infection? No. Patient's initial sepsis screen is negative. Risk Assessment: Do you want to hurt yourself or someone else? Patient reports no desire to harm self or others. Onset of symptoms is unknown. Care prior to arrival: Medication(s) given: Albuterol Neb x 1, Atrovent Neb x 1, solumedrol 125 mg IV IV initiated. 20 GA, in the right antecubital area, Med neb given. Oxygen administered. via nasal cannula, via a nebulizer mask. 14:37 Method Of Arrival: EMS: [facility] ko1 14:37 Acuity: LAYLA 3 ko1 Triage Assessment: 14:41 General: Appears in no apparent distress. Behavior is cooperative, appropriate for age, ko1 anxious. Pain: Denies pain. Respiratory: Reports shortness of breath at rest on exertion Onset: The symptoms/episode began/occurred at an unknown time. the patient has moderate shortness of breath. Historical: - Allergies: 14:41 No Known Allergies; ko1 - PMHx: 14:41 breast cancer; Chronic obstructive lung disease; ko1 - PSHx: 14:41 colon resection; Total abdominal hysterectomy; ko1 - Immunization history:: Adult Immunizations unknown. - Infectious Disease History:: Denies. - Social history:: Smoking status: Patient/guardian denies using tobacco, but has a distant history of tobacco abuse. Screenin:16 [facility] ED Fall Risk Assessment (Adult) History of falling in the last 3 months, ko1 including since admission No falls in past 3 months (0 pts) Confusion or Disorientation No (0 pts) Intoxicated or Sedated No (0 pts) Impaired Gait No (0 pts) Mobility Assist Device Used No (0 pt) Altered Elimination No (0 pt) Score/Fall Risk Level 0 - 2 = Low Risk Oriented to surroundings, Maintained a safe environment, Educated pt \T\ family on fall prevention, incl call for assistance when getting out of bed, Assessed \T\ reinforced patient's understanding of fall precautions, Hourly rounding (assess needs \T\ fall precautionary measures) done. Abuse screen: Denies threats or abuse. Denies injuries from another. Nutritional screening: No deficits noted. Tuberculosis screening: No symptoms or risk factors identified. Assessment: 15:16 Neuro: No deficits noted. Cardiovascular: Rhythm is regular. Respiratory: Airway is ko1 patent Respiratory effort is even, labored, Breath sounds are diminished bilaterally. GI: No deficits noted. : No deficits noted. EENT: No deficits noted. Derm: No deficits noted. Musculoskeletal: No deficits noted. Vital Signs: 14:37 BP 157 / 91; Pulse 82; Resp 18; Temp 98.8; Pulse Ox 99% on 2 lpm NC; ko1 15:16 BP 151 / 74; Pulse 67; Resp 19; Pulse Ox 95% on 3 lpm NC; ko1 16:02 BP 156 / 71; Pulse 65; Pulse Ox 100% ; ap3 17:46 BP 138 / 72; Pulse 68; Resp 18; Pulse Ox 95% on 3 lpm NC; ko1 ED Course: 14:37 Patient arrived in ED. ko1 14:37 Catalina Levy, KARLA is Primary Nurse. ko1 14:39 Angela Bundy PA-C is PHCP. sb4 14:39 Carlin Fountain MD is Attending Physician. sb4 14:41 Triage completed. ko1 14:41 Arm band placed on right wrist. Patient placed in an exam room, Patient notified of ko1 wait time. 14:55 Assisted with bedpan. ko1 15:02 RSV Sent. ko1 15:02 SARS RAPID Sent. ko1 15:02 Flu Sent. ko1 15:02 BMP Sent. ko1 15:02 CBC with Diff Sent. ko1 15:02 Magnesium Sent. ko1 15:02 NT PRO-BNP Sent. ko1 15:16 XRAY CXR (1 view) In Process Unspecified. EDMS 15:16 Patient has correct armband on for positive identification. Bed in low position. Call ko1 light in reach. Side rails up X2. Provided Education on: labs, meds. Client placed on continuous cardiac and pulse oximetry monitoring. NIBP monitoring applied. monitoring manager on. Door closed. Noise minimized. Lights dimmed. Warm blanket given. Pillow given. Assisted with bedpan. 15:16 No provider procedures requiring assistance completed. Maintain EMS IV. Dressing ko1 intact. Good blood return noted. Site clean \T\ dry. Gauge \T\ site: 20g right AC. Flushed with 10 mL NS. Oxygen administration via nasal cannula \T\ 3L/min. 17:16 Keaton Campos MD is Hospitalizing Provider. sb4 17:46 Patient admitted, IV remains in place. ko1 Administered Medications: 15:02 Drug: Magnesium Sulfate IVPB 1 grams IVPB once over 1 hrs Route: IVPB; Infused Over: 1 ko1 hrs; Site: right antecubital; 16:00 Follow up: Response: No adverse reaction; IV Status: Completed infusion; IV Intake: ko1 100ml 15:53 Drug: Levalbuterol Inhalation 1.25 mg Inhalation once Route: Inhalation; ko1 17:26 Drug: acetaZOLAMIDE PO 250 mg PO once Route: PO; ko1 17:57 Follow up: Response: No adverse reaction ko1 Medication: 15:16 VIS not applicable for this client. ko1 Intake: 16:00 IV: 100ml; Total: 100ml. ko1 Outcome: 17:17 Decision to Hospitalize by Provider. sb4 17:46 Admitted to Med/surg accompanied by tech, via stretcher, room 406, with chart, ko1 17:46 Condition: stable 17:46 Instructed on the need for admit, 19:00 Patient left the ED. ko1 Signatures: Dispatcher [employer] EDMonie Evans RN RN ap3 Catalina Levy RN RN ko1 Angela Bundy, PA-C PAMalC sb4 Corrections: (The following items were deleted from the chart) 18:56 17:46 Admitted to Med/surg ko1 ko1
[2024-09-09] MEDS ORDERED: acetaZOLAMIDE 250 MG TAB ONE (17:25)
[2024-09-09] MEDS: acetaZOLAMIDE 250 MG TAB PO SCH (19:20)
[2024-09-09] MEDS: CEFUROXIME 250 MG TAB PO SCH (19:40)
[2024-09-09] MEDS: ALPRAZOLAM 0.25 MG TABLET PO PRN (19:40)
[2024-09-09] MEDS: ZOLPIDEM TARTRATE 5 MG TABLET PO PRN (21:19)
[2024-09-09] MEDS: IPRATROPIUM BROM 0.5MG/2.5ML NEB SCH (21:29)
[2024-09-09] MEDS: ALBUTEROL 2.5 MG/3 ML NEB SOL NEB SCH (21:29)
[2024-09-09 21:47] VITALS: BMI 27.3
[2024-09-10] MEDS: METHYLPREDNISOLONE 40 MG INJ IV SCH (00:21)
--- NOTE | 2024-09-10 03:05 | HP ---
Date of Admission: 09/09/2024 Chief Complaint: Shortness of breath. History Of Present Illness: This is an 83-year-old female patient, who was recently admitted to the hospital and was discharged yesterday and this last hospital admission was because of acute exacerbation of COPD. After the patient's condition improved, she was released to go home yesterday with oral antibiotic and prednisone to continue and today she was brought into emergency room via ambulance with shortness of breath. The patient's daughter is with her today when I saw her and she reports that the patient really got short of breath when she got up and started to walk around. Her oxygen level dropped into 70% range. She was huffing and puffing and she was extremely anxious at home. She is also complaining that she cannot hear quite that well and at home she was having lot of trouble with anxiety and when I saw her today, she appeared very anxious also. She denies any fever, chills, not coughing up any mucus, but still has some dry cough and chest congestion. Medications: List reviewed. Review of Systems: Respiratory: As mentioned above. Constitutional: Generalized weakness. All other systems reviewed and negative. Allergies: NO KNOWN ALLERGIES. Past Medical History: Significant for COPD, left breast cancer, pulmonary nodules, hypertension, hyperlipidemia, colon cancer, osteoarthritis at multiple sites, osteopenia, vitamin D deficiency. Past Surgical History: Cataract surgery, partial pneumonectomy in 2008 and it was not due to cancer, partial resection of colon in 2004 due to colon cancer, and hysterectomy. Family History: Parents , details unknown. Social History: Negative for smoking and alcohol use. Physical Examination: Vital Signs: Temperature 98.8, pulse 82, respiratory rate 18, blood pressure 157/91, oxygen saturation 99% on 2 L nasal cannula oxygen. Height 5 feet 4 inches, weight 159 pounds. General: Awake, alert, oriented, not in distress. HEENT: Head atraumatic, normocephalic. Conjunctivae nonerythematous. Sclerae white. Mouth, no thrush or edema noted. Ears/Nose, no mass, lesion, discharge noted. Neck: Supple. No JVD, lymph nodes, bruit, thyromegaly noted. Lungs: Presence of basal rales noted. Not using any accessory muscles of respiration at rest. No wheezing. Heart: Normal heart sounds, no murmur or gallop. Abdomen: Soft, bowel sounds normal. No guarding, rigidity, tenderness, mass, hepatosplenomegaly, distention, or bruit noted. Extremities: No leg edema. No calf tenderness. Skin: No rash, ulcer, cellulitis. Lymphatics: No lymph node enlargement in neck, supraclavicular, infraclavicular region. Neuro: No focal neurological deficit. Chest: Unremarkable. External Genitalia: Deferred. Rectal: Deferred. Laboratory Data: WBC 6.10, hemoglobin 14.8, platelets 211. Sodium 142, potassium 3.4, chloride 102, bicarb 40, BUN 10, creatinine 0.68, glucose 108, magnesium 2.4. ProBNP 2421. Arterial blood gas; pH 7.45, pCO2 56.6, pO2 74.1, oxygen saturation 97% on 36% FiO2. Chest x-ray, no acute cardiopulmonary changes. COVID-19 test negative. Impression: 1. Congestive heart failure. 2. Chronic obstructive pulmonary disease. 3. Anxiety. 4. Chronic respiratory failure with hypoxia. 5. Acute respiratory failure with hypercapnia. 6. Hypokalemia. 7. Hypertension. 8. Hyperlipidemia. 9. Osteoarthritis, multiple sites. 10. Pulmonary nodule. 11. Left breast cancer. 12. Colon cancer. 13. Osteopenia. 14. Vitamin D deficiency. Plan: We will go ahead and admit the patient to hospital for further evaluation and management of this problem. The patient is appropriate for inpatient and is expected to spend 2 midnights in the hospital. We will provide DVT prophylaxis using Lovenox per order. For her congestive heart failure, we will go ahead and start her on diuretic therapy with acetazolamide 125 mg twice a day. We will repeat blood work tomorrow and depending on her condition, we will decide about starting Lasix tomorrow. We will get echo with Doppler done to evaluate left ventricular ejection fraction. For COPD, we will continue her steroid and antibiotic per order and consult Dr. Paredes. Replace potassium and follow up on blood work tomorrow. The patient is on chronic oxygen therapy for respiratory failure with hypoxia and we will continue that. For her respiratory failure with hypercapnia, we will see how she responds to acetazolamide. No need for any BiPAP therapy at this time. For anxiety, we will continue Xanax per order and starting tomorrow, we will add antianxiety medication per order. For blood pressure, we will continue her antihypertensive medication. Monitor blood pressure and adjust medication as it becomes necessary. For her hyperlipidemia, we will continue her statin therapy per order. No need for further intervention. Total time spent was 60 minutes including communication with emergency room physician, review of emergency room visit record, evaluation and management of this hospital admission, and review of last hospital admission record from 09/04/2024. I will see her tomorrow for followup. SHIRLENE/ANIL Voice ID: [id number]
[2024-09-10] MEDS: ENOXAPARIN 40 MG/0.4 ML SQ SCH (07:50)
[2024-09-10] MEDS: FUROSEMIDE 20 MG/ 2ML VIAL IV ONE (10:50)
[2024-09-10] MEDS: TRAMADOL HCL 50 MG TAB PO PRN (10:50)
[2024-09-10] MEDS: SERTRALINE HCL 50 MG TAB PO SCH (10:50)
[2024-09-10] MEDS: BUSPIRONE HCL 5 MG TABLET PO SCH (13:27)
[2024-09-10] MEDS ORDERED: ONDANSETRON 4 MG/2 ML VIAL IV PRN (16:33)
[2024-09-10] MEDS: TRAZODONE 50 MG TABLET PO SCH (20:13)
[2024-09-10] MEDS: METOPROLOL TAR 50 MG TAB PO SCH (20:15)
[2024-09-10] MEDS: GABAPENTIN 400 MG CAP PO SCH (20:16)
[2024-09-10] MEDS: **PT MED**Budesonide/Glycopyr/Formoterol [Breztri Aerosphere Inhaler] 10.7 GM Hfa IH SCH (21:00)
[2024-09-11] MEDS: LEVOTHYROXINE SOD 0.05 MG TABLET PO SCH (06:01)
[2024-09-11] MEDS: AMLODIPINE 5 MG TAB PO SCH (09:18)
[2024-09-11 12:16] LABS: Anion Gap 8.3 mEq/L (5.0-15.0)
[2024-09-11 12:17] LABS: Magnesium 2.5 mg/dL (1.6-2.4); Potassium 4.3 mEq/L (3.5-5.1)
--- NOTE | 2024-09-11 12:22 | PN ---
Date of Progress Note: 09/11/2024 Subjective: The patient was seen this morning for followup no new complaints or problems reported by patient. She was sleeping, easily arousable and reports that she slept very well last night. This morning, she feels a lot better. Does not appear to be anxious at all and appears very calm. Denies any complaints this morning. Objective: Vital Signs: Reviewed. HEENT: Unremarkable. Lungs: Clear to auscultation. No wheezing. No rales. Heart: Sounds normal. Abdomen: Soft. Bowel sounds normal. No guarding, rigidity, tenderness, distention. Extremities: No leg edema. Impression: 1.Chronic obstructive pulmonary disease, acute exacerbation, improved. 2.Anxiety. 3.Insomnia. 4.Congestive heart failure. Plan: We will go ahead and continue current medical management, discontinue IV steroids, start the p atient on oral prednisone and continue current anxiety medications per order. Yesterday afternoon, t he patient's anxiety was not well controlled at all even after using alprazolam and we did increase d ose of sertraline from 50 to 100 mg daily as of yesterday, but in spite of that she was having lot of trouble. So buspirone 5 mg 2 times a day was started yesterday and it appears that this has actuall y helped to control her symptoms very well. We will continue that and Physical Therapy to continue to work with the patient. I will see h er tomorrow. SHIRLENE/MODL Voice ID: [id number] Report ID: [id number]
[2024-09-11] MEDS: predniSONE 20 MG TAB PO SCH (20:56)
[2024-09-12] MEDS: FUROSEMIDE 20 MG/ 2ML VIAL IV ONE (10:01)
[2024-09-13 05:54] LABS: Absolute Lymphocytes (CBC) 0.9 K/uL (0.7-4.9); Absolute Monocytes 0.5 K/uL (0.1-1.3); Basophils % 0.2 % (0-1.3); Eosinophils % 0.1 % (0-4.4); Hematocrit 42.6 % (36.0-45.0); Hemoglobin 14.2 g/dL (12.0-15.0); Lymphocytes % 10.5 % (15.3-44.8); MCH 31.1 pg (27.0-35.0); MCHC 33.2 g/dL (32.0-36.0); MCV 93.6 fL (80-100); MPV 9.3 fL (7.6-11.3); Monocytes % 5.6 % (3.3-12.3); Neutrophils % 83.6 % (41.7-73.7); Nucleated Red Blood Cells % 0.2 % (0-0); Platelets 237 thou/uL (152-406); RBC Red Blood Cell Count 4.55 M/uL (3.86-4.86); Red Cell Distribution Width 13.5 % (12.1-15.2)
[2024-09-13 06:28] LABS: Anion Gap 5.1 mEq/L (5.0-15.0); Magnesium 2.5 mg/dL (1.6-2.4); Potassium 4.1 mEq/L (3.5-5.1)
[2024-09-13 08:54] LABS: Blood Morphology Comment NOT SEEN (NOT SEEN); Differential Total Cells Count 100; Lymphocytes 9 % (15-42); Monocytes 3 % (0-10); Platelet Estimate ADEQ; Segmented Neutrophils 88 % (40-80)
--- NOTE | 2024-09-13 10:17 | PN ---
Date of Progress Note: 09/12/2024 Subjective: The patient was seen this morning for followup. No new complaints or problems reported by the patient. She slept very well last night. Overall feels better. No nausea, vomiting. Objective: Vital Signs: Reviewed. HEENT: Unremarkable. Lungs: Bilateral good equal air entry. Not using accessory muscles of respiration. Presence of bailey e rales noted in the lung field. Heart: Sounds normal. Abdomen: Soft. Bowel sounds normal. No guarding, rigidity, tenderness, or distention. Extremities: No leg edema. Impression: 1.Congestive heart failure, chronic, diastolic, with acute exacerbation. 2.COPD. 3.Acute respiratory failure with hypercapnia. 4.Chronic respiratory failure with hypoxia. 5.Anxiety. Plan: We will go ahead and continue current anxiety medication which seems to be controlling her sym ptoms very well. Continue oxygen replacement therapy. Continue current steroid and we will use Lasi x 20 mg IV x1 dose today and follow up on her tomorrow to see how she responds and I will see her sharon orrow for followup. Ambulation was encouraged with physical therapy. SHIRLENE/MODL Voice ID: [id number] Report ID: [id number]
[2024-09-13] MEDS: FUROSEMIDE 20 MG/ 2ML VIAL IV ONE (10:18)
--- NOTE | 2024-09-13 11:29 | PN ---
Date of Progress Note: 09/13/2024 Subjective: The patient was seen this morning for followup. She was sleeping comfortably, easily ar ousable. Denies any new complaints. Slept well last night. Yesterday, she walked little bit in the room around her bed with physical therapy. Responded well to Lasix. Objective: Vital Signs: Reviewed. HEENT: Unremarkable. Lungs: Bilateral good equal air entry. Presence of some rales noted in the lower lung lind, overa ll better today than yesterday. Not using accessory muscles of respiration. Heart: Sounds normal. Abdomen: Soft. Bowel sounds normal. No guarding, rigidity, tenderness, distention. Extremities: No leg edema. Laboratory Data: White count 8.4, hemoglobin 14.2, platelets 237. Sodium 140, potassium 4.1, chlori de 108, bicarb 31, BUN 24, creatinine 0.70, glucose 134. Impression: 1.Congestive heart failure, chronic, diastolic, with acute exacerbation. 2.Anxiety. 3.Chronic obstructive pulmonary disease. 4.Chronic respiratory failure with hypoxia. 5.Acute respiratory failure with hypercapnia. Plan: We will go ahead and continue current antibiotic steroids. Given another dose of Lasix 20 mg IV today, physical therapy to try to ambulate again her today and we did talk about possible discharg e plan for tomorrow. We will request social service consultation to make arrangements for home healt h care and home physical therapy and I will see her tomorrow for followup. Her echocardiogram had sh own normal ejection fraction with presence of diastolic dysfunction and details were discussed with the patient regarding this report. SHIRLENE/MODL Voice ID: [id number] Report ID: [id number]
[2024-09-13] MEDS: CLOTRIMAZOLE 10 MG TROCHE PO SCH (13:00)
[2024-09-14 08:22] VITALS: BP 164/77; TEMP 98.4
[2024-09-14 09:58] VITALS: O2SAT 97
--- NOTE | 2024-09-14 11:26 | DS ---
Date of Discharge: 09/14/2024 Disposition: Discharged to go home. Physical Examination: HEENT: Unremarkable. Lungs: Clear to auscultation. Heart: Sounds normal. Abdomen: Soft. Bowel sounds normal. No guarding, rigidity, tenderness, distention. Extremities: No leg edema. Discharge Medications And Instructions: Continue all prior home medication except following changes: 1.Change sertraline 50 mg take 2 tablets by mouth daily until you run out, then change it to sertral ine 100 mg take 1 tablet by mouth daily. 2.Start buspirone 5 mg take 1 tablet by mouth 2 times a day. 3.Start furosemide 20 mg take 1 tablet by mouth daily. 4.Follow up at my office next week. 5.Use oxygen 3 L/minute per nasal cannula at nighttime and while walking and may use oxygen at 2 L/m inute nasal cannula while sitting provided oxygen saturation remains more than 90%. Laboratory Data: Upon admission, sodium 142, potassium 3.4, chloride 102, bicarb 40, BUN 10, creatin ine 0.68, glucose 108. ProBNP 2421. Yesterday, sodium 140, potassium 4.1, chloride 108, bicarb 31, BUN 24, creatinine 0.70, glucose 134. Upon admission, WBC was 6.10, hemoglobin 14.8, platelets 211. Yesterday, WBC 8.4, hemoglobin 14.2, platelets 237. Hospital Course: This is an 83-year-old female patient, who was admitted to the hospital with shortn ess of breath complaints. Please see dictated H and P for more information. After the patient came to emergency room, she was admitted to the hospital. She was noted to have significant problem with anxiety during this hospitalization and that was contributing to her shortness of breath and also we were concerned about diastolic heart failure. I believe she has very severe underlying COPD that cau ses her to have dyspnea with activity requiring chronic oxygen replacement therapy at home and now we are concerned about congestive heart failure and anxiety contributing to this problem. So during [facility] hospitalization, we did get an echo with Doppler which showed normal ejection fraction with diasto lic dysfunction. Lasix 20 mg IV daily was given. Oxygen was continued and we continued her home med ications, but we did have to increase the dose of sertraline from 50 mg daily to 100 mg daily and delfin t was not enough and we had to add buspirone 5 mg 2 times a day and that combination has actually hel ped to control her anxiety problem. Physical Therapy was consulted and she is ambulating short dista nce with therapy. She has oxygen at home. She lives with her daughter and today I did go over all t hese instructions with her and her son who was present with her at bedside. Chest x-ray did not show any acute cardiopulmonary changes and COVID-19 test was negative. Arterial blood gas upon admission had shown pH 7.45, pCO2 56.6, pO2 74.1, saturation 97% on 36% FiO2. Overall, the patient's conditio n has improved well enough where she feels comfortable going home today and I will see her on outpati ent basis next week. Final Diagnoses: 1.Congestive heart failure, chronic, diastolic, with acute exacerbation. 2.Chronic respiratory failure with hypoxia. 3.Acute respiratory failure with hypercapnia. 4.COPD. 5.Anxiety. 6.Hypokalemia. 7.Hypertension. 8.Hyperlipidemia. 9.Osteoarthritis, multiple sites. 10.Osteopenia. 11.Vitamin D deficiency. 12.Pulmonary nodule. 13.Left breast cancer. 14.Colon cancer. Total time spent today 40 minutes. SHIRLENE/MODL Voice ID: [id number] Report ID: [id number]
--- NOTE | 2024-09-16 10:28 | ECHO ---
HEIGHT: 5 ft 4 in WEIGHT: 159 lb 0 oz DATE OF STUDY: 09/10/[address]: Joe Campos MD 2-DIMENSIONAL: YES M.MODE: YES DOPPLER: YES COLOR FLOW: YES TDS: NO PORTABLE: YES DEFINITY: NO BUBBLE STUDY: NO DIAGNOSIS: CONGESTIVE HEART FAILURE CARDIAC HISTORY: CATHERIZATION: NO SURGERY: NO PROSTHETIC VALVE: NO PACEMAKER: NO MEASUREMENTS (cm) DIASTOLIC (NORMALS) SYSTOLIC (NORMALS) IVSd 0.9 (0.6-1.2) LA Diam 3.0 (1.9-4.0) LVEF 55-60% LVIDd 3.8 (3.5-5.7) LVIDs 2.7 (2.0-3.5) %FS 29% LVPWd 1.0 (0.6-1.2) Ao Diam 2.2 (2.0-3.7) 2 DIMENSIONAL ASSESSMENT: RIGHT ATRIUM: NORMAL LEFT ATRIUM: NORMAL RIGHT VENTRICLE: NORMAL LEFT VENTRICLE: NORMAL TRICUSPID VALVE: MILD TRICUSPID REGURGITATION MITRAL VALVE: MILD MITRAL REGURGITATION PULMONIC VALVE: NORMAL AORTIC VALVE: NORMAL PERICARDIAL EFFUSION: NONE AORTIC ROOT: NORMAL LEFT VENTRICULAR WALL MOTION: NORMAL. DOPPLER/COLOR FLOW: SEE BELOW. COMMENTS: 1. NORMAL LEFT VENTRICULAR EJECTION FRACTION 55-60% WITH NORMAL WALL MOTION. 2. GRADE I DIASTOLIC DYSFUNCTION. 3. MILD MITRAL REGURGITATION. 4. MILD TRICUSPID REGURGITATION. TECHNOLOGIST: TRISHA GOFF
--- NOTE | 2024-09-20 10:23 | PN ---
Date of Progress Note: 09/10/2024 Subjective: The patient was seen this morning for followup. No new complaints or problems reported by her. She was lying in bed. Physical Examination: Vital Signs: Reviewed. Last temperature 98, pulse 90, respiratory rate 20, blood pressure 139/80, o xygen saturation 90% on 4 L nasal cannula oxygen. Physical Examination: HEENT: Unremarkable. Lungs: Bilateral good equal air entry. Clear to auscultation. No wheezing. No rales. Heart: Sounds normal. Abdomen: Soft. Bowel sounds normal. No guarding, rigidity, tenderness, distention. Extremities: No leg edema. Impression: 1.Congestive heart failure. 2.COPD. 3.Anxiety. 4.Chronic respiratory failure with hypoxia. 5.Acute respiratory failure with hypercapnia. Plan: We will go ahead and continue current medications. Continue oxygen nebulizer treatment. Cont inue her steroid medications per order and diuretic therapy. We will follow up on echocardiogram res ult and I will see her tomorrow for followup. SHIRLENE/MODL Voice ID: [id number] Report ID: [id number]
== END 2024-09-14 13:09 | disposition home or self-care (01) | DRG 291 ==
LOC: ER 14:34 → ERHOLD 17:20 → 4TH 18:50
PROVIDERS: ADMIT Internal Medicine; ATTEND Internal Medicine
PROC: 4A033R1 Measurement of Arterial Saturation, Peripheral, Percutaneous Approach (ICD-10-PCS; principal; 2024-09-09)
DX: I11.0 Hypertensive heart disease with heart failure (principal); I50.33 Acute on chronic diastolic (congestive) heart failure; J96.22 Acute and chronic respiratory failure with hypercapnia; J44.1 Chronic obstructive pulmonary disease with (acute) exacerbation; J96.11 Chronic respiratory failure with hypoxia; C18.9 Malignant neoplasm of colon, unspecified; E78.5 Hyperlipidemia, unspecified; E87.6 Hypokalemia; G47.00 Insomnia, unspecified; F41.9 Anxiety disorder, unspecified; C50.912 Malignant neoplasm of unspecified site of left female breast; M19.09 Primary osteoarthritis, other specified site; M85.80 Other specified disorders of bone density and structure, unspecified site; E55.9 Vitamin D deficiency, unspecified; R91.8 Other nonspecific abnormal finding of lung field; Z99.81 Dependence on supplemental oxygen; Z11.52 Encounter for screening for COVID-19; Z90.49 Acquired absence of other specified parts of digestive tract; Z87.891 Personal history of nicotine dependence; Z90.710 Acquired absence of both cervix and uterus; Z85.038 Personal history of other malignant neoplasm of large intestine
CPT/HCPCS: 36415; 36600; 71045; 80048; 82805; 83735; 83880; 85025; 87804; 87807; 87811; 93306; 94640; 96365; 97110; 97116; 97161; 97530; 99285; J1650; J1940; J2405; J2919; J3475; J7512; J7613; J7614; J7644